=== PATIENT | female | born 1935 | race Native Hawaiian/Other Pacific Islander ===

== ENCOUNTER → 2016-11-01 | Outpatient (CLI) | payer MEDICARE, OTHER ==
[~2016-11-01] MED LIST: BACT800T5 PO; DICL50TA3 PO; MEDR4PAK3 PO; METO100T9 PO; ULTR50TA PO
[2016-11-01 09:28] LABS: AUTOMATED NEUTROPHIL # 4.4 TH/MM3 (1.8-7.7); BASOPHIL # 0.1 TH/MM3 (0-0.2); BASOPHIL % 1.3 % (0.0-2.0); EOSINOPHIL # 0.5 TH/MM3 (0-0.4); EOSINOPHIL % 6.9 % (0.0-4.0); HEMATOCRIT 35.4 % (35.0-46.0); HEMO FLAGS DIFF FINAL; LYMPH % 26.7 % (9.0-44.0); LYMPHOCYTE # 2.1 TH/MM3 (1.0-4.8); MEAN CELL VOLUME 85.7 FL (80.0-100.0); MEAN CORPUSCULAR HEMOGLOBIN 28.6 PG (27.0-34.0); MEAN CORPUSCULAR HGB CONC 33.4 % (32.0-36.0); NEUT % 57.1 % (16.0-70.0); PLATELET COUNT 339 TH/MM3 (150-450); RED BLOOD COUNT 4.14 MIL/MM3 (4.00-5.30); RED CELL DISTRIBUTION WIDTH 13.8 % (11.6-17.2); WHITE BLOOD COUNT 7.7 TH/MM3 (4.0-11.0)
[2016-11-01 09:35] LABS: ALKALINE PHOSPHATASE 70 U/L (45-117); ALT (GPT) 24 U/L (10-53); ANION GAP 9 MEQ/L (5-15); AST (GOT) 24 U/L (15-37); BICARBONATE 25.1 MEQ/L (21.0-32.0); BLOOD UREA NITROGEN 30 MG/DL (7-18); CHLORIDE 105 MEQ/L (98-107); GLOMERULAR FILTRATION RATE 57 ML/MIN (>89); GLUCOSE,FASTING 89 MG/DL (74-99); LDL CHOLESTEROL 136 MG/DL (0-99); POTASSIUM 4.5 MEQ/L (3.5-5.1); SODIUM (NA) 139 MEQ/L (136-145); TOTAL BILIRUBIN ADULT 0.3 MG/DL (0.2-1.0)
== END ==
LOC: PLAB 07:24
PROVIDERS: ATTEND Internal Medicine
DX: I10 Essential (primary) hypertension (principal); M15.0 Primary generalized (osteo)arthritis
CPT/HCPCS: 36415; 80053; 80061; 85025

== ENCOUNTER → 2016-12-13 | Outpatient (CLI) | payer MEDICARE, OTHER ==
[2016-12-13 10:16] LABS: BICARBONATE 28.4 MEQ/L (21.0-32.0); POTASSIUM 4.4 MEQ/L (3.5-5.1)
== END ==
LOC: PLAB 07:02
PROVIDERS: ATTEND Internal Medicine
DX: N17.8 Other acute kidney failure (principal)
CPT/HCPCS: 36415; 80048

== ENCOUNTER → 2017-03-29 | Outpatient (CLI) | payer MEDICARE, OTHER ==
[2017-03-29 09:06] LABS: AUTOMATED NEUTROPHIL # 3.9 TH/MM3 (1.8-7.7); BASOPHIL # 0.1 TH/MM3 (0-0.2); BASOPHIL % 1.3 % (0.0-2.0); EOSINOPHIL # 0.3 TH/MM3 (0-0.4); EOSINOPHIL % 4.6 % (0.0-4.0); HEMATOCRIT 33.3 % (35.0-46.0); HEMO FLAGS DIFF FINAL; LYMPH % 28.1 % (9.0-44.0); LYMPHOCYTE # 1.9 TH/MM3 (1.0-4.8); MEAN CELL VOLUME 84.1 FL (80.0-100.0); MEAN CORPUSCULAR HEMOGLOBIN 28.1 PG (27.0-34.0); MEAN CORPUSCULAR HGB CONC 33.4 % (32.0-36.0); MONO % 7.9 % (0.0-8.0); NEUT % 58.1 % (16.0-70.0); PLATELET COUNT 357 TH/MM3 (150-450); RED BLOOD COUNT 3.96 MIL/MM3 (4.00-5.30); WHITE BLOOD COUNT 6.8 TH/MM3 (4.0-11.0)
[2017-03-29 09:36] LABS: ANION GAP 5 MEQ/L (5-15); AST (GOT) 23 U/L (15-37); BICARBONATE 26.1 MEQ/L (21.0-32.0); BLOOD UREA NITROGEN 31 MG/DL (7-18); CHLORIDE 106 MEQ/L (98-107); GLOMERULAR FILTRATION RATE 65 ML/MIN (>89); GLUCOSE,FASTING 92 MG/DL (74-99); POTASSIUM 4.7 MEQ/L (3.5-5.1); SODIUM (NA) 137 MEQ/L (136-145)
[2017-03-29 09:47] LABS: ALKALINE PHOSPHATASE 74 U/L (45-117); ALT (GPT) 21 U/L (10-53); LDL CHOLESTEROL 127 MG/DL (0-99); TOTAL BILIRUBIN ADULT 0.2 MG/DL (0.2-1.0)
== END ==
LOC: PLAB 07:07
PROVIDERS: ATTEND Internal Medicine
DX: I10 Essential (primary) hypertension (principal); R53.83 Other fatigue
CPT/HCPCS: 36415; 80053; 80061; 84443; 85025

== ENCOUNTER → 2017-04-14 | Outpatient (CLI) | payer MEDICARE, OTHER ==
[2017-04-14 08:44] LABS: POTASSIUM 5.7 MEQ/L (3.5-5.1)
[2017-04-14 08:46] LABS: BICARBONATE 28.4 MEQ/L (21.0-32.0)
== END ==
LOC: PLAB 07:22
PROVIDERS: ATTEND Internal Medicine
DX: N17.9 Acute kidney failure, unspecified (principal)
CPT/HCPCS: 36415; 80048

== ENCOUNTER → 2017-09-04 | Outpatient (CLI) | payer MEDICARE, OTHER ==
[2017-09-04 09:56] LABS: AUTOMATED NEUTROPHIL # 3.8 TH/MM3 (1.8-7.7); BASOPHIL # 0.1 TH/MM3 (0-0.2); BASOPHIL % 1.3 % (0.0-2.0); EOSINOPHIL # 0.3 TH/MM3 (0-0.4); EOSINOPHIL % 5.2 % (0.0-4.0); HEMATOCRIT 33.3 % (35.0-46.0); HEMOGLOBIN 11.2 GM/DL (11.6-15.3); LYMPH % 26.6 % (9.0-44.0); LYMPHOCYTE # 1.7 TH/MM3 (1.0-4.8); MEAN CELL VOLUME 84.4 FL (80.0-100.0); MEAN CORPUSCULAR HEMOGLOBIN 28.4 PG (27.0-34.0); MEAN CORPUSCULAR HGB CONC 33.6 % (32.0-36.0); MEAN PLATELET VOLUME 7.6 FL (7.0-11.0); MONO % 8.3 % (0.0-8.0); MONOCYTE # 0.5 TH/MM3 (0-0.9); NEUT % 58.6 % (16.0-70.0); PLATELET COUNT 394 TH/MM3 (150-450); RED BLOOD COUNT 3.94 MIL/MM3 (4.00-5.30); RED CELL DISTRIBUTION WIDTH 14.1 % (11.6-17.2); WHITE BLOOD COUNT 6.5 TH/MM3 (4.0-11.0)
[2017-09-04 10:16] LABS: ALBUMIN 3.5 GM/DL (3.4-5.0); AST (GOT) 20 U/L (15-37); BICARBONATE 27.9 MEQ/L (21.0-32.0); BLOOD UREA NITROGEN 26 MG/DL (7-18); CALCIUM 9.3 MG/DL (8.5-10.1); CHLORIDE 102 MEQ/L (98-107); CHOLESTEROL 204 MG/DL (120-200); CREATININE 0.91 MG/DL (0.50-1.00); GLOMERULAR FILTRATION RATE 60 ML/MIN (>89); GLUCOSE,FASTING 93 MG/DL (74-99); SODIUM (NA) 137 MEQ/L (136-145); TRIGLYCERIDES 135 MG/DL (42-150)
[2017-09-04 10:42] LABS: % SATURATION IRON PROFILE 11.5 % (20-50); ALKALINE PHOSPHATASE 73 U/L (45-117); ALT (GPT) 23 U/L (10-53); CHOLESTEROL/ HDL RATIO 3.86 RATIO; FERRITIN 30 NG/ML (8-252); HDL CHOLESTEROL 52.8 MG/DL (40.0-60.0); IRON (FE) 50 MCG/DL (50-170); LDL CHOLESTEROL 124 MG/DL (0-99); TOTAL BILIRUBIN ADULT 0.2 MG/DL (0.2-1.0); TOTAL IRON BINDING CAPACITY 434 MCG/DL (250-450); TOTAL PROTEIN 7.7 GM/DL (6.4-8.2)
[2017-09-04 10:52] LABS: FOLATE GREATER THAN 20.0 NG/ML (3.1-17.5)
== END ==
LOC: PLAB 07:24
PROVIDERS: ATTEND Internal Medicine
DX: D64.9 Anemia, unspecified (principal); I10 Essential (primary) hypertension
CPT/HCPCS: 36415; 80053; 80061; 82607; 82728; 82746; 83540; 83550; 85025

== ENCOUNTER 2017-11-27 04:37 | Observation (INO) | payer MEDICARE, OTHER ==
[2017-11-27] VITALS (8 sets, daily range): BP systolic 138–201; BP diastolic 82–99; PULSE 70–101; RESP 16–20; TEMP 96.2–97.6; O2SAT 95–100
[~2017-11-27] VITALS: Ht 147.3 cm; Wt 48.0 kg
--- NOTE | 2017-11-27 05:12 | PD ---
HPI Chief Complaint: GI Complaint Time Seen by Provider: 05:05 Travel History International Travel<30 days: No Contact w/Intl Traveler<30days: No Traveled to known affect area: No History of Present Illness HPI 82-year-old female presents to the emergency department by private transportation the care of family for evaluation of vomiting 2 this morning. Patient was awakened from sleep at 2:30 AM with episode of vomiting stomach contents and then again at 4 AM with episode of vomiting stomach contents. No bilious emesis no hematemesis no coffee-ground emesis. On Monday patient had episodes of diarrhea without melena hematochezia. Patient had no fever chills. Patient has had generalized weakness after episodes of vomiting. No chest pain no shortness of breath no referred neck jaw back shoulder arm flank pain or epigastric pain. Patient has history of hypertension but denies other chronic medical conditions. Patient has had previous knee surgery but no other surgeries. Patient had no dysuria frequency urgency flank pain or hematuria. Patient's had no confusion headache visual disturbance speech disturbance or focal upper or lower extremity numbness tingling or weakness or unilateral numbness tingling or weakness. Patient has remained appropriate except for generalized weakness. Again patient had no fever chills. No recent respiratory illness. Patient has consumed the same foods as her family members who present with her. Denies dietary indiscretion well water ingestion or foreign travel. Patient had no change in her medications which include metoprolol for blood pressure management and as needed tramadol for chronic knee pain. Patient also notes generalized abdominal pain primarily left lower quadrant. No known history of inflammatory bowel disease, colitis or diverticulitis. No prior abdominal surgeries. Discomfort is mild at this time [facility] Past Medical History Narrative Medical Low-dose aspirin daily hypertension chronic knee pain bilateral knee surgery eye surgery; no tobacco use alcohol use substance use; nursing notes reviewed Hx Anticoagulant Therapy: Yes Arthritis: Yes Blood Disorders: No Heart Rhythm Problems: No Cancer: No Cardiovascular Problems: No High Cholesterol: No Chemotherapy: No Chest Pain: No Congestive Heart Failure: No Cerebrovascular Accident: No Diabetes: No Endocrine: No Glaucoma: Yes (LT EYE) Genitourinary: No Headaches: Yes Hepatitis: No Hiatal Hernia: No Hypertension: Yes Immune Disorder: No Medical other: Yes (ARTHRITIS) Musculoskeletal: Yes Neurologic: Yes Psychiatric: No Respiratory: No Immunizations Current: No Myocardial Infarction: No Radiation Therapy: No Seizures: No Thyroid Disease: No Menopausal: Yes Past Surgical History Abdominal Surgery: No AICD: No Cardiac Surgery: No Ear Surgery: No Endocrine Surgery: No Eye Surgery: Yes (EYE SURGERY FOR GLAUCOMA) Genitourinary Surgery: No Gynecologic Surgery: No Joint Replacement: Yes (BILAT KNEE 05,06) Oral Surgery: No Pacemaker: No Thoracic Surgery: No Other Surgery: Yes Social History Alcohol Use: No Tobacco Use: No Substance Use: No Allergies-Medications (Allergen,Severity, Reaction): Coded Allergies: sulfamethoxazole (Unverified Allergy, Intermediate, 04/04/17) trimethoprim (Unverified Allergy, Intermediate, 04/04/17) Reported Meds & Prescriptions Reported Meds & Active Scripts Active Review of Systems Except as stated in HPI: all other systems reviewed are Neg General / Constitutional: No: Fever, Chills Eyes: No: Visual changes HENT: No: Headaches, Lightheadedness Cardiovascular: No: Chest Pain or Discomfort Respiratory: No: Shortness of Breath Gastrointestinal: Positive: Nausea, Vomiting, Diarrhea, Abdominal Pain, No: Hematemesis, Hematochezia Genitourinary: No: Dysuria, Flank Pain Musculoskeletal: No: Myalgias, Arthralgias Skin: No Rash Neurologic: Positive: Weakness, No: Dizziness, Syncope, Focal Abnormalities, Coordination Problem, Change in Mentation, Slurred Speech Psychiatric: Positive: Anxiety Hematologic/Lymphatic: No: Lymph Node Enlargement Physical Exam Narrative GENERAL: Pleasant elderly female in no acute distress no respiratory distress with family at bedside; patient speaks Darius and family is available to translate, stratus is not available SKIN: Warm and dry. HEAD: Normocephalic. EYES: No scleral icterus. No injection or drainage. NECK: Supple, trachea midline. No JVD or lymphadenopathy. CARDIOVASCULAR: Regular rate and rhythm without murmurs, gallops, or rubs. Pulses are 2+ and equal bilaterally radial and dorsalis pedis pulses RESPIRATORY: Breath sounds equal bilaterally. No accessory muscle use. GASTROINTESTINAL: Abdomen soft, non-tender except for mild tenderness to left lower quadrant without guarding or rebound, nondistended. No palpable pulsatile mass. MUSCULOSKELETAL: No cyanosis, or edema. BACK: Nontender without obvious deformity. No CVA tenderness. Data Data Last Documented VS Vital Signs Date Time Temp Pulse Resp B/P (MAP) Pulse Ox O2 Delivery O2 Flow Rate FiO2 11/27/17 07:01 18 11/27/17 06:24 85 138/82 (100) 100 Room Air 11/27/17 04:44 97.6 Orders Orders Complete Blood Count With Diff (11/27/17 05:05) Comprehensive Metabolic Panel (11/27/17 05:05) Urinalysis - C+S If Indicated (11/27/17 05:05) Lipase (11/27/17 05:05) Iv Access Insert/Monitor (11/27/17 05:05) Ecg Monitoring (11/27/17 05:05) Oximetry (11/27/17 05:05) Sodium Chloride 0.9% Flush (Ns Flush) (11/27/17 05:15) Chest, Single Ap (11/27/17 05:05) Electrocardiogram (11/27/17 ) Magnesium (Mg) (11/27/17 05:05) Troponin I (11/27/17 05:05) Ckmb (Isoenzyme) Profile (11/27/17 05:05) Ct Abd/Pel W/O Iv Contrast (11/27/17 ) Sodium Chlorid 0.9% 500 Ml Inj (Ns 500 M (11/27/17 07:00) Labs Laboratory Tests Test 11/27/17 05:30 White Blood Count 13.1 TH/MM3 Red Blood Count 4.28 MIL/MM3 Hemoglobin 11.6 GM/DL Hematocrit 35.5 % Mean Corpuscular Volume 82.9 FL Mean Corpuscular Hemoglobin 27.0 PG Mean Corpuscular Hemoglobin Concent 32.6 % Red Cell Distribution Width 14.1 % Platelet Count 488 TH/MM3 Mean Platelet Volume 7.7 FL Neutrophils (%) (Auto) 89.6 % Lymphocytes (%) (Auto) 6.3 % Monocytes (%) (Auto) 1.9 % Eosinophils (%) (Auto) 0.6 % Basophils (%) (Auto) 1.6 % Neutrophils # (Auto) 11.8 TH/MM3 Lymphocytes # (Auto) 0.8 TH/MM3 Monocytes # (Auto) 0.2 TH/MM3 Eosinophils # (Auto) 0.1 TH/MM3 Basophils # (Auto) 0.2 TH/MM3 CBC Comment AUTO DIFF Differential Comment AUTO DIFF CONFIRMED Urine Collection Type CLEAN CATCH Urine Color YELLOW Urine Turbidity CLEAR Urine pH 6.0 Urine Specific [place] 1.025 Urine Protein 30 mg/dL Urine Glucose (UA) NEG mg/dL Urine Ketones TRACE mg/dL Urine Occult Blood NEG Urine Nitrite NEG Urine Bilirubin NEG Urine Urobilinogen 0.2 MG/DL Urine Leukocyte Esterase NEG Urine WBC 3-5 /hpf Urine Squamous Epithelial Cells 0-5 /hpf Urine Mucus MOD /lpf Microscopic Urinalysis Comment CULT NOT INDICATED Blood Urea Nitrogen 28 MG/DL Creatinine 0.96 MG/DL Random Glucose 130 MG/DL Total Protein 7.6 GM/DL Albumin 3.0 GM/DL Calcium Level 8.8 MG/DL Magnesium Level 2.2 MG/DL Alkaline Phosphatase 76 U/L Aspartate Amino Transf (AST/SGOT) 29 U/L Alanine Aminotransferase (ALT/SGPT) 20 U/L Total Bilirubin 0.3 MG/DL Sodium Level 137 MEQ/L Potassium Level 4.6 MEQ/L Chloride Level 103 MEQ/L Carbon Dioxide Level 26.1 MEQ/L Anion Gap 8 MEQ/L Estimat Glomerular Filtration Rate 56 ML/MIN Total Creatine Kinase 93 U/L Troponin I LESS THAN 0.02 NG/ML Lipase 315 U/L [facility] Medical Decision Making Medical Screen Exam Complete: Yes Emergency Medical Condition: Yes Medical Record Reviewed: Yes Interpretation(s) UA: wnl Troponin I: Less than 0.02; CK: 93, not elevated Lipase 350, not elevated Last Impressions Chest X-Ray 11/27/17 0505 Signed Impressions: Service Date/Time: Monday, November 27, 2017 05:11 - CONCLUSION: Left apical density, unchanged from previous study. No infiltrate. Darren Castro MD CBC & BMP Diagram 11/27/17 05:30 Total Protein 7.6, Albumin 3.0 L, Calcium Level 8.8, Magnesium Level 2.2, Alkaline Phosphatase 76, Aspartate Amino Transf (AST/SGOT) 29, Alanine Aminotransferase (ALT/SGPT) 20, Total Bilirubin 0.3 Vital Signs Date Time Temp Pulse Resp B/P (MAP) Pulse Ox O2 Delivery O2 Flow Rate FiO2 11/27/17 06:24 85 16 138/82 (100) 100 Room Air 11/27/17 05:41 97 Room Air 11/27/17 04:44 97.6 101 16 201/95 (130) 99 Differential Diagnosis Foodborne illness, gastroenteritis, viral syndrome, electrolyte disturbance, diverticulitis, colitis, bowel obstruction, pancreatitis, biliary colic, ACS, atypical chest pain Narrative Course Patient no acute distress IV access obtained specimens collected and sent for resulting patient at this time denies any nausea therefore will defer administration of any antiemetic Lab values found to be grossly within normal limits specifically white count however is elevated at 13,000 with left shift; chemistries remarkable for mild renal insufficiency; urinalysis is normal; troponin I is less than 0.02, not elevated and CK total is 93 not elevated; EKG is sinus tachycardia with no acute ST elevation or injury pattern. Patient remains mildly tachycardic denies any further nausea and has had no vomiting while here in the emergency department continues to deny any fever chills chest pain shortness of breath diaphoresis and presently abdomen is soft nontender without guarding or rebound no joint pain or swelling or skin rash. However in view of patient's ongoing tachycardia and white cell count elevation with only 2 episodes of vomiting proceed with CT kidney stone protocol to evaluate for possible intra-abdominal/intrapelvic etiology for vomiting. Patient also received 500 cc bolus of normal saline at 250 cc aliquots. Care signed over to Dr. Arce Diagnosis Primary Impression: Vomiting Qualified Codes: R11.2 - Nausea with vomiting, unspecified Karin Flores MD Nov 27, 2017 05:12
[2017-11-27] MEDS ORDERED: SODIUM CHLORIDE 0.9% FLUSH 10 ML FLUSH IVF PRN (05:15)
--- NOTE | 2017-11-27 05:33 | RADRPT ---
EXAM DATE/TIME: 11/27/2017 05:11 [facility] COMPARISON: CHEST PA & LAT, October 28, 2015, 12:11. INDICATIONS : Shortness of breath. MEDICAL HISTORY : None. SURGICAL HISTORY : None. ENCOUNTER: Initial ACUITY: 1 day PAIN SCORE: 0/10 LOCATION: Bilateral chest FINDINGS: A single view of the chest demonstrates a left apical density. Right lung clear. Heart normal in siz e. Osseous structures are intact. CONCLUSION: Left apical density, unchanged from previous study. No infiltrate. Darren Castro MD on November 27, 2017 at 5:30 Board Certified Radiologist. This report was verified electronically.
[2017-11-27 05:49] LABS: AUTOMATED NEUTROPHIL # 11.8 TH/MM3 (1.8-7.7); BASOPHIL # 0.2 TH/MM3 (0-0.2); BASOPHIL % 1.6 % (0.0-2.0); EOSINOPHIL # 0.1 TH/MM3 (0-0.4); EOSINOPHIL % 0.6 % (0.0-4.0); HEMATOCRIT 35.5 % (35.0-46.0); HEMOGLOBIN 11.6 GM/DL (11.6-15.3); LYMPH % 6.3 % (9.0-44.0); LYMPHOCYTE # 0.8 TH/MM3 (1.0-4.8); MEAN CELL VOLUME 82.9 FL (80.0-100.0); MEAN CORPUSCULAR HGB CONC 32.6 % (32.0-36.0); MEAN PLATELET VOLUME 7.7 FL (7.0-11.0); MONO % 1.9 % (0.0-8.0); MONOCYTE # 0.2 TH/MM3 (0-0.9); NEUT % 89.6 % (16.0-70.0); PLATELET COUNT 488 TH/MM3 (150-450); RED BLOOD COUNT 4.28 MIL/MM3 (4.00-5.30); RED CELL DISTRIBUTION WIDTH 14.1 % (11.6-17.2); WHITE BLOOD COUNT 13.1 TH/MM3 (4.0-11.0)
[2017-11-27 05:52] LABS: CHLORIDE 103 MEQ/L (98-107); SODIUM (NA) 137 MEQ/L (136-145)
[2017-11-27 05:53] LABS: BILIRUBIN, URINE NEG (NEG); BLOOD, URINE NEG (NEG); GLUCOSE,URINE NEG (NEG); KETONE, URINE TRACE mg/dL (NEG); NITRITE,URINE NEG (NEG); URINE COLOR YELLOW (YELLW/STRAW); URINE LEUKOCYTE ESTERASE NEG (NEG)
[2017-11-27 05:56] LABS: BICARBONATE 26.1 MEQ/L (21.0-32.0); CALCIUM 8.8 MG/DL (8.5-10.1); GLUCOSE,RANDOM 130 MG/DL (74-106); MAGNESIUM 2.2 MG/DL (1.5-2.5)
[2017-11-27 05:57] LABS: BLOOD UREA NITROGEN 28 MG/DL (7-18)
[2017-11-27 05:59] LABS: ALT (GPT) 20 U/L (10-53); AST (GOT) 29 U/L (15-37); CREATININE 0.96 MG/DL (0.50-1.00); GLOMERULAR FILTRATION RATE 56 ML/MIN (>89)
[2017-11-27 06:01] LABS: TOTAL BILIRUBIN ADULT 0.3 MG/DL (0.2-1.0); TOTAL PROTEIN 7.6 GM/DL (6.4-8.2)
[2017-11-27 06:02] LABS: ALKALINE PHOSPHATASE 76 U/L (45-117)
[2017-11-27 06:03] LABS: MUCUS URINE MOD /lpf (OCC)
[2017-11-27 06:05] LABS: SQUAMOUS EPITHELIAL CELL URINE 0-5 /hpf (0-5)
[2017-11-27 06:06] LABS: TROPONIN I LESS THAN 0.02 NG/ML (0.02-0.05)
[2017-11-27] MEDS ORDERED: SODIUM CHLORID 0.9% 500 ML INJ 500 ML IV ONE (07:00)
--- NOTE | 2017-11-27 07:52 | RADRPT ---
EXAM DATE/TIME: 11/27/2017 07:15 [facility] COMPARISON: No previous studies available for comparison. INDICATIONS : Vomiting. ORAL CONTRAST: No oral contrast ingested. RADIATION DOSE: 7.50 CTDIvol (mGy) MEDICAL HISTORY : Hypertension. SURGICAL HISTORY : None. ENCOUNTER: Initial ACUITY: 1 day PAIN SCALE: 0/10 LOCATION: pelvis abdomen TECHNIQUE: Volumetric scanning of the abdomen and pelvis was performed. Using automated exposure control and ad justment of the mA and/or kV according to patient size, radiation dose was kept as low as reasonably achievable to obtain optimal diagnostic quality images. DICOM format image data is available electro nically for review and comparison. FINDINGS: Spleen, pancreas, adrenals, kidneys, liver, gallbladder, stomach, urinary bladder, uterus and adnexa are unremarkable. No evidence of bowel extraction. Atherosclerotic calcifications of the aorta and il iac vessels are noted. Trace free fluid in the office. There are scattered colonic diverticuli. In th e left lower quadrant on axial image 46 there is a focal eccentric bowel wall thickening involving th e descending colon with adjacent stranding of the pericolonic fat identified. A colonic mass given th e eccentric bowel wall thickening is difficult to exclude. Focal diverticulitis may also have this ap pearance. There is a small amount of free fluid at the inferior tip of the right hepatic lobe with st randing of the fat in the right lower quadrant. There is abnormal dilatation of small bowel loops in the midabdomen particularly in the right mid abdomen just inferior to the level of the right kidney. Ileus versus developing obstruction cannot this appearance. The appendix is not visualized. Lung base s are clear. Osseous structures are intact. CONCLUSION: There are inflammatory changes and fluid in the right midabdomen as well as a small amount of free fl uid in the mesentery and pelvis with mildly dilated loops of small bowel seen greatest in the right m id abdomen. A developing obstruction may have this appearance versus an ileus pattern. There is also abnormal all wall thickening and adjacent stranding of the pericolonic fat of the desce nding colon focally which may reflect colonic neoplasm versus mild diverticulitis, favor the former. Direct visualization with colonoscopy should be considered if one has not recently been performed. Junior Cullen MD on November 27, 2017 at 7:47 Board Certified Radiologist. This report was verified electronically.
--- NOTE | 2017-11-27 09:23 | PD ---
HPI Chief Complaint: GI Complaint Time Seen by Provider: 09:15 Travel History International Travel<30 days: No Contact w/Intl Traveler<30days: No Traveled to known affect area: No History of Present Illness HPI 82-year-old female presented with abdominal pain and vomiting. The vomiting occurred around 430 this morning. She has been seen by Dr. Flores initially. A CT scan was ordered. The CT scan has been read. There are inflammatory changes and fluid in the right midabdomen as well as small amount of free fluid in the mesentery and pelvis with mildly dilated loops of small bowel seen greatest in the right midabdomen developing obstruction versus ileus could have this pattern. There is also abnormal wall thickening and stranding of the pericolonic fat of the descending colon which may reflect colonic neoplasm versus mild diverticulitis, favor the former. Direct visualization with colonoscopy should be considered if one has not recently been performed. On speaking with the patient she has had a colonoscopy within the past 5 years she thinks which was done routinely. Patient is 82 years old with ileus versus early obstruction. I will contact medical service for admission. I have spoken with Dr. Andrews who iswilling to consult and does recommend that we give Flagyl PFS Past Medical History Hx Anticoagulant Therapy: Yes Arthritis: Yes Blood Disorders: No Heart Rhythm Problems: No Cancer: No Cardiovascular Problems: No High Cholesterol: No Chemotherapy: No Chest Pain: No Congestive Heart Failure: No Cerebrovascular Accident: No Diabetes: No Endocrine: No Glaucoma: Yes (LT EYE) Genitourinary: No Headaches: Yes Hepatitis: No Hiatal Hernia: No Hypertension: Yes Immune Disorder: No Medical other: Yes (ARTHRITIS) Musculoskeletal: Yes Neurologic: Yes Psychiatric: No Respiratory: No Immunizations Current: No Myocardial Infarction: No Radiation Therapy: No Seizures: No Thyroid Disease: No Menopausal: Yes Past Surgical History Abdominal Surgery: No AICD: No Cardiac Surgery: No Ear Surgery: No Endocrine Surgery: No Eye Surgery: Yes (EYE SURGERY FOR GLAUCOMA) Genitourinary Surgery: No Gynecologic Surgery: No Joint Replacement: Yes (BILAT KNEE 05,06) Oral Surgery: No Pacemaker: No Thoracic Surgery: No Other Surgery: Yes Social History Alcohol Use: No Tobacco Use: No Substance Use: No Allergies-Medications (Allergen,Severity, Reaction): Coded Allergies: sulfamethoxazole (Unverified Allergy, Intermediate, 04/04/17) trimethoprim (Unverified Allergy, Intermediate, 04/04/17) Reported Meds & Prescriptions Reported Meds & Active Scripts Active Reported Metoprolol Succinate ER 24 HR (Metoprolol Succinate) 100 Mg Tab 100 Mg PO DAILY Physical Exam Narrative per Dr Flores's dictation Data Data Last Documented VS Vital Signs Date Time Temp Pulse Resp B/P (MAP) Pulse Ox O2 Delivery O2 Flow Rate FiO2 11/27/17 07:01 18 11/27/17 06:24 85 138/82 (100) 100 Room Air 11/27/17 04:44 97.6 Orders Orders Complete Blood Count With Diff (11/27/17 05:05) Comprehensive Metabolic Panel (11/27/17 05:05) Urinalysis - C+S If Indicated (11/27/17 05:05) Lipase (11/27/17 05:05) Iv Access Insert/Monitor (11/27/17 05:05) Ecg Monitoring (11/27/17 05:05) Oximetry (11/27/17 05:05) Sodium Chloride 0.9% Flush (Ns Flush) (11/27/17 05:15) Chest, Single Ap (11/27/17 05:05) Electrocardiogram (11/27/17 ) Magnesium (Mg) (11/27/17 05:05) Troponin I (11/27/17 05:05) Ckmb (Isoenzyme) Profile (11/27/17 05:05) Ct Abd/Pel W/O Iv Contrast (11/27/17 ) Sodium Chlorid 0.9% 500 Ml Inj (Ns 500 M (11/27/17 07:00) Sodium Chlor 0.9% 1000 Ml Inj (Ns 1000 M (11/27/17 09:45) Metronidazole 500 Mg Inj (Flagyl 500 Mg (11/27/17 09:45) Admit Order (Ed Use Only) (11/27/17 10:04) Place In Observation (11/27/17 ) Vital Signs (Adult) Q4H (11/27/17 10:02) Activity Oob Ad Sobeida (11/27/17 10:02) Intake + Output GENARO.QSHIFT (11/27/17 10:02) Sodium Chlor 0.9% 1000 Ml Inj (Ns 1000 M (11/27/17 10:02) Sodium Chloride 0.9% Flush (Ns Flush) (11/27/17 10:15) Sodium Chloride 0.9% Flush (Ns Flush) (11/27/17 21:00) Ondansetron Inj (Zofran Inj) (11/27/17 12:00) Scd Bilateral/Knee High GENARO.BID (11/27/17 10:02) Naloxone Inj (Narcan Inj) (11/27/17 10:15) Docusate Sodium-Senna (Sola-Colace) (11/27/17 21:00) Magnesium Hydroxide Liq (Milk Of Magnesi (11/27/17 10:15) Sennosides (Senokot) (11/27/17 10:15) Bisacodyl Supp (Dulcolax Supp) (11/27/17 10:15) Lactulose Liq (Lactulose Liq) (11/27/17 10:15) Acetamin-Hydrocod 325-5 Mg (Allred 5-325 (11/27/17 10:15) Acetamin-Hydrocod 325-10 Mg (Allred 10-32 (11/27/17 10:15) Morphine Inj (Morphine Inj) (11/27/17 10:15) Labs Laboratory Tests Test 11/27/17 05:30 White Blood Count 13.1 TH/MM3 Red Blood Count 4.28 MIL/MM3 Hemoglobin 11.6 GM/DL Hematocrit 35.5 % Mean Corpuscular Volume 82.9 FL Mean Corpuscular Hemoglobin 27.0 PG Mean Corpuscular Hemoglobin Concent 32.6 % Red Cell Distribution Width 14.1 % Platelet Count 488 TH/MM3 Mean Platelet Volume 7.7 FL Neutrophils (%) (Auto) 89.6 % Lymphocytes (%) (Auto) 6.3 % Monocytes (%) (Auto) 1.9 % Eosinophils (%) (Auto) 0.6 % Basophils (%) (Auto) 1.6 % Neutrophils # (Auto) 11.8 TH/MM3 Lymphocytes # (Auto) 0.8 TH/MM3 Monocytes # (Auto) 0.2 TH/MM3 Eosinophils # (Auto) 0.1 TH/MM3 Basophils # (Auto) 0.2 TH/MM3 CBC Comment AUTO DIFF Differential Comment AUTO DIFF CONFIRMED Urine Collection Type CLEAN CATCH Urine Color YELLOW Urine Turbidity CLEAR Urine pH 6.0 Urine Specific [place] 1.025 Urine Protein 30 mg/dL Urine Glucose (UA) NEG mg/dL Urine Ketones TRACE mg/dL Urine Occult Blood NEG Urine Nitrite NEG Urine Bilirubin NEG Urine Urobilinogen 0.2 MG/DL Urine Leukocyte Esterase NEG Urine WBC 3-5 /hpf Urine Squamous Epithelial Cells 0-5 /hpf Urine Mucus MOD /lpf Microscopic Urinalysis Comment CULT NOT INDICATED Blood Urea Nitrogen 28 MG/DL Creatinine 0.96 MG/DL Random Glucose 130 MG/DL Total Protein 7.6 GM/DL Albumin 3.0 GM/DL Calcium Level 8.8 MG/DL Magnesium Level 2.2 MG/DL Alkaline Phosphatase 76 U/L Aspartate Amino Transf (AST/SGOT) 29 U/L Alanine Aminotransferase (ALT/SGPT) 20 U/L Total Bilirubin 0.3 MG/DL Sodium Level 137 MEQ/L Potassium Level 4.6 MEQ/L Chloride Level 103 MEQ/L Carbon Dioxide Level 26.1 MEQ/L Anion Gap 8 MEQ/L Estimat Glomerular Filtration Rate 56 ML/MIN Total Creatine Kinase 93 U/L Troponin I LESS THAN 0.02 NG/ML Lipase 315 U/L [facility] Medical Decision Making Medical Screen Exam Complete: Yes Emergency Medical Condition: Yes Medical Record Reviewed: Yes Differential Diagnosis Differential includes ileus versus early small bowel obstruction. Possible space-occupying lesion in the colon Narrative Course Patient will be admitted to the hospital for further evaluation of Her abnormal CT scan Diagnosis Primary Impression: Vomiting Qualified Codes: R11.2 - Nausea with vomiting, unspecified Additional Impression: Abdominal pain Admitting Information Admitting Physician Requests: Observation [place] MD Nov 27, 2017 09:23
[2017-11-27] MEDS ORDERED: SODIUM CHLOR 0.9% 1000 ML INJ 1,000 ML IV ONE (09:45)
[2017-11-27] MEDS ORDERED: metroNIDAZOLE 500 MG INJ 100 ML IV ONE (09:45)
[2017-11-27] MEDS: SODIUM CHLOR 0.9% 1000 ML INJ 1,000 ML IV SCH ×2 (10:02→23:19)
[2017-11-27] MEDS ORDERED: MORPHINE SULFATE 2 MG/ML SYRINGE IV PUSH PRN (10:15)
[2017-11-27] MEDS ORDERED: BISACODYL 10 MG SUPP RECTAL PRN (10:15)
[2017-11-27] MEDS ORDERED: SENNOSIDES 8.6 MG TAB PO PRN (10:15)
[2017-11-27] MEDS ORDERED: ACETAMINOPHEN/HYDROcodone 325 MG/5 MG TAB PO PRN (10:15)
[2017-11-27] MEDS ORDERED: SODIUM CHLORIDE 0.9% FLUSH 10 ML FLUSH IV FLUSH PRN (10:15)
[2017-11-27] MEDS ORDERED: LACTULOSE SYRUP 20 GM/30 ML CUP PO PRN (10:15)
[2017-11-27] MEDS ORDERED: NALOXONE HCL 0.4 MG/ML AMP IV PUSH PRN (10:15)
[2017-11-27] MEDS ORDERED: MAGNESIUM HYDROXIDE SUSP 30 ML CUP PO PRN (10:15)
[2017-11-27] MEDS ORDERED: ACETAMINOPHEN/HYDROcodone 325 MG/10 MG TAB PO PRN (10:15)
[2017-11-27] MEDS ORDERED: ONDANSETRON HCL 4 MG/2 ML VIAL IVP PRN (12:00)
[2017-11-27] MEDS ORDERED: METO1TAB43 PO (12:46)
[2017-11-27] MEDS ORDERED: ENALAPRILAT 1.25 MG/ML VIAL IV PUSH PRN (13:00)
[2017-11-27] MEDS: METOPROLOL SUCCINATE 50 MG EXTENDED RELEASE TAB PO SCH (13:13)
--- NOTE | 2017-11-27 13:55 | PD.CONS ---
HPI History of Present Illness This is a 82 year old F who presented to the ER last night with complaints of abdominal pain, nausea, and vomiting. Pt states the abdominal pain began last night and has since resolved. Abdominal pain was generalized and constant. Also had two episodes of emesis early this morning, Denies hematemesis and coffee ground emesis. Pt returned from [facility] on November 09, although she denies prior abdominal pain, the daughter states she was recently seen by PCP for pain who prescribed her an antibiotic and antiemetic. Pt denies diarrhea, constipation, blood in stool, weight loss, acid reflux. Per pts daughter the patient has been having a poor appetite for the past week. She thinks her last colonoscopy was 4-5 years ago and believes it was a normal exam. Unsure who did the procedure or where it was done. Reviewed our office records and none found on pt. (Ruba Mena) PFSH Past Medical History HTN (Ruba Mena) Coded Allergies: sulfamethoxazole (Unverified Allergy, Intermediate, 04/04/17) trimethoprim (Unverified Allergy, Intermediate, 04/04/17) Review of Systems Gastrointestinal: COMPLAINS OF: Abdominal pain, Nausea, Vomiting, DENIES: Black stools, Bloody stools, Constipation, Diarrhea, Difficulty Swallowing, Odynophagia, Swelling of Abdomen, Heartburn, Hematemesis (Ruba Mena) GI Exam Vitals I&O Vital Signs Date Time Temp Pulse Resp B/P (MAP) Pulse Ox O2 Delivery O2 Flow Rate FiO2 11/27/17 12:00 96.2 99 16 196/92 (126) 95 11/27/17 11:39 199/95 (129) 11/27/17 07:01 18 11/27/17 06:24 85 16 138/82 (100) 100 Room Air 11/27/17 05:41 97 Room Air 11/27/17 04:44 97.6 101 16 201/95 (130) 99 I/O 11/26/17 11/26/17 11/26/17 11/27/17 11/27/17 11/27/17 07:00 15:00 23:00 07:00 15:00 23:00 Intake Total 350 ml Balance 350 ml Intake IV Total 350 ml Imaging Last Impressions Chest X-Ray 11/27/17 0509 Signed Impressions: Service Date/Time: Monday, November 27, 2017 05:11 - CONCLUSION: Left apical density, unchanged from previous study. No infiltrate. Darren Castro MD Abdomen/Pelvis CT 11/27/17 0000 Signed Impressions: Service Date/Time: Monday, November 27, 2017 07:15 - CONCLUSION: There are inflammatory changes and fluid in the right midabdomen as well as a small amount of free fluid in the mesentery and pelvis with mildly dilated loops of small bowel seen greatest in the right mid abdomen. A developing obstruction may have this appearance versus an ileus pattern. There is also abnormal all wall thickening and adjacent stranding of the pericolonic fat of the descending colon focally which may reflect colonic neoplasm versus mild diverticulitis, favor the former. Direct visualization with colonoscopy should be considered if one has not recently been performed. Junior Cullen MD Laboratory Test 11/27/17 05:30 White Blood Count 13.1 TH/MM3 Red Blood Count 4.28 MIL/MM3 Hemoglobin 11.6 GM/DL Hematocrit 35.5 % Mean Corpuscular Volume 82.9 FL Mean Corpuscular Hemoglobin 27.0 PG Mean Corpuscular Hemoglobin Concent 32.6 % Red Cell Distribution Width 14.1 % Platelet Count 488 TH/MM3 Mean Platelet Volume 7.7 FL Neutrophils (%) (Auto) 89.6 % Lymphocytes (%) (Auto) 6.3 % Monocytes (%) (Auto) 1.9 % Eosinophils (%) (Auto) 0.6 % Basophils (%) (Auto) 1.6 % Neutrophils # (Auto) 11.8 TH/MM3 Lymphocytes # (Auto) 0.8 TH/MM3 Monocytes # (Auto) 0.2 TH/MM3 Eosinophils # (Auto) 0.1 TH/MM3 Basophils # (Auto) 0.2 TH/MM3 CBC Comment AUTO DIFF Differential Comment AUTO DIFF CONFIRMED Urine Collection Type CLEAN CATCH Urine Color YELLOW Urine Turbidity CLEAR Urine pH 6.0 Urine Specific [place] 1.025 Urine Protein 30 mg/dL Urine Glucose (UA) NEG mg/dL Urine Ketones TRACE mg/dL Urine Occult Blood NEG Urine Nitrite NEG Urine Bilirubin NEG Urine Urobilinogen 0.2 MG/DL Urine Leukocyte Esterase NEG Urine WBC 3-5 /hpf Urine Squamous Epithelial Cells 0-5 /hpf Urine Mucus MOD /lpf Microscopic Urinalysis Comment CULT NOT INDICATED Blood Urea Nitrogen 28 MG/DL Creatinine 0.96 MG/DL Random Glucose 130 MG/DL Total Protein 7.6 GM/DL Albumin 3.0 GM/DL Calcium Level 8.8 MG/DL Magnesium Level 2.2 MG/DL Alkaline Phosphatase 76 U/L Aspartate Amino Transf (AST/SGOT) 29 U/L Alanine Aminotransferase (ALT/SGPT) 20 U/L Total Bilirubin 0.3 MG/DL Sodium Level 137 MEQ/L Potassium Level 4.6 MEQ/L Chloride Level 103 MEQ/L Carbon Dioxide Level 26.1 MEQ/L Anion Gap 8 MEQ/L Estimat Glomerular Filtration Rate 56 ML/MIN Total Creatine Kinase 93 U/L Troponin I LESS THAN 0.02 NG/ML Lipase 315 U/L Physical Examination HEENT: Normocephalic; atraumatic CHEST: Even/unlabored. CARDIAC: RRR ABDOMEN: Distended, soft, nontender, bowel sounds active EXTREMITIES: No clubbing, cyanosis, or edema. SKIN: Normal; no rash; no jaundice. 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 (Ruba Mena) Assessment and Plan Plan Assessment: - Abdominal pain that began last night and has since resolved. States it was generalized and constant. Reports starting last night, however per pts daughter she was recently seen by PCP for same and given an antibiotic which she did not take because she said it was too strong and antiemetic. Denies diarrhea, constipation, blood in stool, weight loss. CT abdomen and pelvis W/O IV contrast (11/27) --> There are inflammatory changes and fluid in the right midabdomen as well as a small amount of free fluid in the mesentery and pelvis with mildly dilated loops of small bowel seen greatest in the right mid abdomen. A developing obstruction may have this appearance versus an ileus pattern. There is also abnormal all wall thickening and adjacent stranding of the pericolonic fat of the descending colon focally which may reflect colonic neoplasm versus mild diverticulitis, favor the former. Direct visualization with colonoscopy should be considered if one has not recently been performed. Pt thinks her last colonoscopy was 4-5 years ago and believes it was a normal exam, unsure of who did it or where it was done. EGD/colon from 2002 --> Hiatal hernia. Gastritis. Hemorrhoids. Poor prep. - Nausea, vomiting- reports two episodes early this morning. Denies hematemesis and coffee ground emesis. Of note, recent travel, returned from [place] on November 09. Denies fever, chills, diarrhea. - Poor appetite- per pts daughter has been for the past week. Plan: Colonoscopy tomorrow Obtain consent Clear liquids today Mag Citrate prep NPO after MN CT concerning for possible developing obstruction, pt denies nausea, emesis at this time- if unable to tolerate prep or begins vomiting, place NGT to LIWS and SSE x 2 can be done in AM Antiemetics PRN Further recommendations based on findings of above Pt has been seen and examined by myself and Dr. Mcginnis and this note is written on her behalf (Ruba Mena) Physician Comments seen, examined agre with above colonoscopy if negative consider egd, cta based on clinical condition (Nayely Mcginnis MD) Ruba Mena Nov 27, 2017 13:55 Nayely Mcginnis MD Nov 28, 2017 08:26
--- NOTE | 2017-11-27 15:12 | EKG ---
Date Performed: 11/27/2017 Time Performed: 05:59:24 PTAGE: 82 years EKG: Sinus rhythm Since the previous tracing, no significant change noted NORMAL ECG PREVIOUS TRACING : 06/07/2010 10.42 DOCTOR: Larry Rawls Interpretating Date/Time 11/27/2017 15:09:47
[2017-11-27] MEDS ORDERED: MAGNESIUM CITRATE SOLN 300 ML BTL PO ONE (16:00)
[2017-11-27] MEDS: metroNIDAZOLE 500 MG INJ 100 ML IV SCH (16:04)
[2017-11-27] MEDS: MAGNESIUM CITRATE SOLN 300 ML BTL PO ONE ×2 (17:42→18:38)
[2017-11-27] MEDS ORDERED: ZOLPIDEM TARTRATE 5 MG TAB PO PRN (18:45)
--- NOTE | 2017-11-27 18:47 | HHI.HP ---
[facility] Yusef Delcid MD Admission Diagnosis ABDOMINAL PAIN Diagnoses: Travel History International Travel<30 Days: No Contact w/Intl Traveler <30 Da: No Traveled to Known Affected Are: No History of Present Illness Patient is a very pleasant 82-year-old female with past medical history of hypertension and glaucoma presented with complaints of abdominal pain, nausea and vomiting. Patient's daughter was at bedside and help a lot with the history. Apparently patient woke up at 4 AM with excruciating abdominal pain and vomited twice. After that she had for more episodes of emesis. No blood. Mainly vomited food. She has never had an episode like this. Patient has no prior history of abdominal surgeries in the past. No fevers or chills, patient has not passed any flatulence or bowel movement since yesterday. Patient just came back from [place] about 1.5 weeks ago. Daughter denies any sick contacts at home. No coughing, runny nose, sore throat, burning with urination. Currently , patient denies any abdominal pain. Review of Systems ROS Limitations: Language Barrier Per HPI with assistance of patient's daughter Past Family Social History Past Medical History HTN, glaucoma Past Surgical History Bilateral knee surgery left eye prosthetic Allergies: Coded Allergies: sulfamethoxazole (Unverified Allergy, Intermediate, 04/04/17) trimethoprim (Unverified Allergy, Intermediate, 04/04/17) Family History Father had diabetes, mother was healthy Social History No smoking history, alcohol use or illegal drug use Physical Exam Vital Signs Vital Signs Date Time Temp Pulse Resp B/P (MAP) Pulse Ox O2 Delivery O2 Flow Rate FiO2 11/27/17 16:00 96.5 70 16 146/94 (111) 100 11/27/17 12:00 96.2 99 16 196/92 (126) 95 11/27/17 11:39 199/95 (129) 11/27/17 07:01 18 11/27/17 06:24 85 16 138/82 (100) 100 Room Air 11/27/17 05:41 97 Room Air 11/27/17 04:44 97.6 101 16 201/95 (130) 99 Physical Exam GENERAL: This is a well-nourished, well-developed patient, in no apparent distress. SKIN: No rashes, ecchymoses or lesions. Cool and dry. HEAD: Atraumatic. Normocephalic. No temporal or scalp tenderness. EYES: Pupils equal round and reactive. Extraocular motions intact. No scleral icterus. No injection or drainage. ENT: Nose without drainage. Throat without erythema, tonsillar hypertrophy or exudate. Uvula midline. Airway patent. NECK: Trachea midline. CARDIOVASCULAR: Regular rate and rhythm without murmurs. RESPIRATORY: Clear to auscultation. Breath sounds equal bilaterally. No wheezes GASTROINTESTINAL: Abdomen soft, some discomfort with deep palpation in the left lower quadrant, nondistended. Bowel sounds are present. No guarding MUSCULOSKELETAL: Extremities without edema. Moves all extremities NEUROLOGICAL: Awake and alert. Normal speech. Laboratory Laboratory Tests Test 11/27/17 05:30 White Blood Count 13.1 Red Blood Count 4.28 Hemoglobin 11.6 Hematocrit 35.5 Mean Corpuscular Volume 82.9 Mean Corpuscular Hemoglobin 27.0 Mean Corpuscular Hemoglobin Concent 32.6 Red Cell Distribution Width 14.1 Platelet Count 488 Mean Platelet Volume 7.7 Neutrophils (%) (Auto) 89.6 Lymphocytes (%) (Auto) 6.3 Monocytes (%) (Auto) 1.9 Eosinophils (%) (Auto) 0.6 Basophils (%) (Auto) 1.6 Neutrophils # (Auto) 11.8 Lymphocytes # (Auto) 0.8 Monocytes # (Auto) 0.2 Eosinophils # (Auto) 0.1 Basophils # (Auto) 0.2 CBC Comment AUTO DIFF Differential Comment AUTO DIFF CONFIRMED Urine Collection Type CLEAN CATCH Urine Color YELLOW Urine Turbidity CLEAR Urine pH 6.0 Urine Specific [place] 1.025 Urine Protein 30 Urine Glucose (UA) NEG Urine Ketones TRACE Urine Occult Blood NEG Urine Nitrite NEG Urine Bilirubin NEG Urine Urobilinogen 0.2 Urine Leukocyte Esterase NEG Urine WBC 3-5 Urine Squamous Epithelial Cells 0-5 Urine Mucus MOD Microscopic Urinalysis Comment CULT NOT INDICATED Blood Urea Nitrogen 28 Creatinine 0.96 Random Glucose 130 Total Protein 7.6 Albumin 3.0 Calcium Level 8.8 Magnesium Level 2.2 Alkaline Phosphatase 76 Aspartate Amino Transf (AST/SGOT) 29 Alanine Aminotransferase (ALT/SGPT) 20 Total Bilirubin 0.3 Sodium Level 137 Potassium Level 4.6 Chloride Level 103 Carbon Dioxide Level 26.1 Anion Gap 8 Estimat Glomerular Filtration Rate 56 Total Creatine Kinase 93 Troponin I LESS THAN 0.02 Lipase 315 Result Diagram: 11/27/17 0530 11/27/17 0530 Imaging Last Impressions Chest X-Ray 11/27/17 0505 Signed Impressions: Service Date/Time: Monday, November 27, 2017 05:11 - CONCLUSION: Left apical density, unchanged from previous study. No infiltrate. Darren Castro MD Abdomen/Pelvis CT 11/27/17 0000 Signed Impressions: Service Date/Time: Monday, November 27, 2017 07:15 - CONCLUSION: There are inflammatory changes and fluid in the right midabdomen as well as a small amount of free fluid in the mesentery and pelvis with mildly dilated loops of small bowel seen greatest in the right mid abdomen. A developing obstruction may have this appearance versus an ileus pattern. There is also abnormal all wall thickening and adjacent stranding of the pericolonic fat of the descending colon focally which may reflect colonic neoplasm versus mild diverticulitis, favor the former. Direct visualization with colonoscopy should be considered if one has not recently been performed. Junior Cullen MD Caprini VTE Risk Assessment Caprini VTE Risk Assessment: Mod/High Risk (score >= 2) Caprini Risk Assessment Model Point Value = 1 Point Value = 2 Point Value = 3 Point Value = 5 Age 41-60 Minor surgery BMI > 25 kg/m2 Swollen legs Varicose veins or History of unexplained or recurrent spontaneous Oral contraceptives or hormone replacement Sepsis (< 1 month) Serious lung disease, including pneumonia (< 1 month) Abnormal pulmonary function Acute myocardial infarction Congestive heart failure (< 1 month) History of inflammatory bowel disease Medical patient at bed rest Age 61-74 Arthroscopic surgery Major open surgery (> 45 min) Laparoscopic surgery (> 45 min) Malignancy Confined to bed (> 72 hours) Immobilizing plaster cast Central venous access Age >= 75 History of VTE Family history of VTE Factor V Leiden Prothrombin [id number] Lupus anticoagulant Anticardiolipin antibodies Elevated serum homocysteine Heparin-induced thrombocytopenia Other congenital or acquired thrombophilia Stroke (< 1 month) Elective arthroplasty Hip, pelvis, or leg fracture Acute spinal cord injury (< 1 month) Prophylaxis Regimen Total Risk Factor Score Risk Level Prophylaxis Regimen 0-1 Low Early ambulation 2 Moderate Order ONE of the following: *Sequential Compression Device (SCD) *Heparin 5000 units SQ BID 3-4 Higher Order ONE of the following medications: *Heparin 5000 units SQ TID *Enoxaparin/Lovenox 40 mg SQ daily (WT < 150 kg, CrCl > 30 mL/min) *Enoxaparin/Lovenox 30 mg SQ daily (WT < 150 kg, CrCl > 10-29 mL/min) *Enoxaparin/Lovenox 30 mg SQ BID (WT < 150 kg, CrCl > 30 mL/min) AND/OR *Sequential Compression Device (SCD) 5 or more Highest Order ONE of the following medications: *Heparin 5000 units SQ TID (Preferred with Epidurals) *Enoxaparin/Lovenox 40 mg SQ daily (WT < 150 kg, CrCl > 30 mL/min) *Enoxaparin/Lovenox 30 mg SQ daily (WT < 150 kg, CrCl > 10-29 mL/min) *Enoxaparin/Lovenox 30 mg SQ BID (WT < 150 kg, CrCl > 30 mL/min) AND *Sequential Compression Device (SCD) Assessment and Plan Assessment and Plan Abdominal pain/nausea/vomiting: CT shows inflammatory changes and fluid in the right mid abdomen as well as small amount of free fluid in the mesentery and pelvis with mildly dilated loops of small bowel greatest seen in the right midabdomen. Concerns for obstruction versus ileus at this time. There is also concern for possible colonic neoplasm in the descending colon. Both GI and general surgery have been consulted. Patient scheduled for colonoscopy tomorrow morning. If patient unable to tolerate the prep, per GIs recommendations, NG tube should be placed. At this time, patient wants to try to take the prep orally and avoid the NG tube. I have ordered p.o. pain medications and IV pain medication as needed. Encourage ambulation. Zofran as needed for nausea or vomiting. Hypertension: Patient's home medication has been resumed. Vasotec as needed Mild leukocytosis: might be a reactive process. however pt has been started on flagyl per GS recs. DVT proph: SCDs for now as pt is scheduled for colonoscopy Code Status full Discussed Condition With patient and family members and ED physician Evelyn Villela MD Nov 27, 2017 18:47
[2017-11-27] MEDS: SODIUM CHLORIDE 0.9% FLUSH 10 ML FLUSH IV FLUSH SCH (21:26)
[2017-11-27] MEDS: DOCUSATE SODIUM 50 MG/SENNA 8.6 MG TAB PO SCH (21:32)
[2017-11-27] MEDS: ENALAPRILAT 1.25 MG/ML VIAL IV PUSH PRN (21:33)
[2017-11-28] VITALS (7 sets, daily range): BP systolic 144–199; BP diastolic 67–92; PULSE 77–96; RESP 16–20; TEMP 96.3–97.9; O2SAT 94–100
[2017-11-28] MEDS: metroNIDAZOLE 500 MG INJ 100 ML IV SCH ×2 (01:15→09:32)
--- NOTE | 2017-11-28 07:53 | GIPROC ---
[facility] [address] [place] [address], [id number] COLONOSCOPY PROCEDURE REPORT EXAM DATE: 11/28/2017 PATIENT NAME: Godwin Townsend MR #: [id number] BIRTHDATE: 1935 ENDOSCOPIST: Nayely Mcginnis MD ORDER #: [id number] DESKTOP SUPPORT MANAGER: Kesha Berg and Shital Watson STATUS: inpatient INDICATIONS: The patient is a 82 yr old female here for a colonoscopy due to abnormal ct PROCEDURE PERFORMED: Colonoscopy with biopsy MEDICATIONS: None and Per Anesthesia. PREP QUALITY: good PREP TYPE:Other: ESTIMATED BLOOD LOSS: None CONSENT: The patient understands the risks and benefits of the procedure and understands that these risks include, but are not limited to: sedation, allergic reaction, infection, perforation and/or bleeding. Alternative means of evaluation and treatment include, among others: physical exam, x-rays, and/or surgical intervention. The patient elects to proceed with this endoscopic procedure. medical equipment was checked for proper function. Hand hygiene and appropriate measures for infection prevention was taken. After the risks, benefits and alternatives of the procedure were thoroughly explained, Informed consent was verified, confirmed and timeout was successfully executed by the treatment team. A digital exam revealed decreased sphincter tone and revealed external hemorrhoids The Pentax [id number] endoscope was introduced through the anus and advanced to the cecum, which was identified by both the appendix and ileocecal valve. The instrument was then slowly withdrawn as the colon was fully examined. 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 Retroflexed views revealed internal hemorrhoids and Retroflexed views revealed small internal hemorrhoids The scope was then completely withdrawn from the patient and the procedure terminated. PROCEDURE WITHDRAWAL TIME:6minutes ADVERSE EVENTS: There were no complications. IMPRESSIONS: 1. Diverticulosis sigmoid,descending 2. Retroflexed views revealed internal hemorrhoids 3. Retroflexed views revealed small internal hemorrhoids 4. Revealed decreased sphincter tone 5. Revealed external hemorrhoids RECOMMENDATIONS: 1. Await biopsy results. Biopsy results will not be ready for 7-10 days. If you don't hear from us in two weeks, call our office for results. 2. Benefiber 2 tsp daily 3. Probiotics from any C or health food store 4. Yearly rectal exams RECALL: Return 10 years Colonoscopy Nayely Mcginnis MD eSigned: Nayely Mcginnis MD 11/28/2017 7:53 AM cc:
--- NOTE | 2017-11-28 08:26 | MB ---
cc: Dustin Livingston MD DATE: 11/27/2017 PERSON REQUESTING CONSULTATION: Dr. Yaz Villela REASON FOR CONSULTATION: Small bowel and colonic inflammation, abdominal pain, nausea, vomiting. HISTORY OF PRESENT ILLNESS: The patient is an 82-year-old female, non-Syriac speaking, originally from [place], who presented to [facility] with 3 days of nausea, vomiting and abdominal pain. The patient states that she went to [place] a few weeks ago and since then has "not felt right" in the abdominal area. She has never been sick like this before. She has been having bowel movements and passing gas throughout this time. She has no prior abdominal surgeries. She denies fever, chills, night sweats or any other complaints. In the Emergency Department, the patient underwent a CT scan which did show some inflammation of the small bowel and colon with possible gastro or colitis. White blood cell count was elevated at 13.1. The patient was admitted and placed on antibiotics. REVIEW OF SYSTEMS: A 12-point review of systems conducted in the chart and with the patient with the family translating is negative. PAST MEDICAL HISTORY: Hypertension, glaucoma. PAST SURGICAL HISTORY: Left eye prosthetic, bilateral knee surgery. ALLERGIES: SULFAMETHOXAZOLE, TRIMETHOPRIM. FAMILY HISTORY: Father had diabetes. Mother is healthy. SOCIAL HISTORY: The patient denies alcohol, tobacco or illicit drug use. Recent travel history, the patient in [place] a few weeks ago. PHYSICAL EXAMINATION: VITAL SIGNS: Blood pressure 146/94, heart rate 70, respiratory rate 16, temperature 96.5 degrees. GENERAL: The patient is a thin female in no acute distress. HEENT: Normocephalic, atraumatic. EYES: Sclerae is anicteric. Oral cavity is clear. Airway is patent. NECK: Supple. No JVD. LUNGS: Breath sounds present bilaterally. Nonlabored breathing pattern. HEART: Regular rate and rhythm. ABDOMEN: Soft, mildly distended. No peritonitis or rebound tenderness. No surgical scars. No organomegaly, no ascites. Normal bowel sounds. BACK: No CVA tenderness. EXTREMITIES: No clubbing, cyanosis or edema. NEUROLOGIC: The patient is alert and oriented. Judgment seems to be intact through translation. Nonfocal peripheral exam. Cranial nerves 2-12 are grossly intact. ASSESSMENT AND PLAN: The patient is an 82-year-old female, possible enteritis or colitis, abdominal pain. Agree with current management with coverage of antibiotics. I agree with stool studies and culture for ova and parasites due to the recent travel history. A colonoscopy for evaluation is also appropriate in my opinion. I do not see any indication for any acute surgical intervention at this time. We will follow with the patient and followup on the patient's workup, cultures and colonoscopy. Thank you very much for this consultation. MD PRIMITIVO Perez/EJRONIMO , 08:42 PM , 09:15 PM
[2017-11-28] MEDS: DOCUSATE SODIUM 50 MG/SENNA 8.6 MG TAB PO SCH (09:00)
[2017-11-28] MEDS: SODIUM CHLORIDE 0.9% FLUSH 10 ML FLUSH IV FLUSH SCH (09:31)
[2017-11-28] MEDS: METOPROLOL SUCCINATE 50 MG EXTENDED RELEASE TAB PO SCH (09:32)
[2017-11-28] MEDS ORDERED: PROPOFOL 200 MG/20 ML AMP IV ONE (12:00)
[2017-11-28 12:14] LABS: AUTOMATED NEUTROPHIL # 5.6 TH/MM3 (1.8-7.7); BASOPHIL # 0.1 TH/MM3 (0-0.2); BASOPHIL % 1.8 % (0.0-2.0); EOSINOPHIL # 0.1 TH/MM3 (0-0.4); EOSINOPHIL % 0.7 % (0.0-4.0); HEMATOCRIT 32.5 % (35.0-46.0); HEMOGLOBIN 10.5 GM/DL (11.6-15.3); LYMPH % 14.8 % (9.0-44.0); LYMPHOCYTE # 1.1 TH/MM3 (1.0-4.8); MEAN CELL VOLUME 83.6 FL (80.0-100.0); MEAN CORPUSCULAR HGB CONC 32.3 % (32.0-36.0); MEAN PLATELET VOLUME 7.6 FL (7.0-11.0); MONO % 4.8 % (0.0-8.0); MONOCYTE # 0.3 TH/MM3 (0-0.9); NEUT % 77.9 % (16.0-70.0); PLATELET COUNT 465 TH/MM3 (150-450); WHITE BLOOD COUNT 7.3 TH/MM3 (4.0-11.0)
--- NOTE | 2017-11-28 12:18 | HHI.PR ---
Subjective Remarks Nursing denies any deterioration since last night. Patient's grandson is at the bedside. Patient is currently post colonoscopy since this morning. Patient herself denies any abdominal pain or further vomiting since last night. Is tolerating Jell-O well postprocedure. Objective Vital Signs Date Time Temp Pulse Resp B/P (MAP) Pulse Ox O2 Delivery O2 Flow Rate FiO2 11/28/17 10:30 97.0 87 16 198/92 (127) 94 11/28/17 08:12 75 14 176/75 (108) 100 11/28/17 07:56 98.4 70 14 152/79 (103) 100 11/28/17 07:02 97.5 77 18 145/75 (98) 95 11/28/17 04:00 97.5 77 18 145/75 (98) 95 11/28/17 00:00 97.8 81 19 148/85 (106) 96 11/28/17 00:00 97.9 81 19 148/85 (106) 96 11/27/17 21:33 146/98 (114) Automatic Cuff 11/27/17 20:00 97.1 83 20 186/99 (128) 100 11/27/17 16:00 96.5 70 16 146/94 (111) 100 I/O 11/27/17 11/27/17 11/27/17 11/28/17 11/28/17 11/28/17 06:59 14:59 22:59 06:59 14:59 22:59 Intake Total 350 ml 1329 ml 791 ml 400 ml Balance 350 ml 1329 ml 791 ml 400 ml Intake Oral 0 ml IV Total 350 ml 1329 ml 791 ml Other 400 ml # Voids 4 0 # Bowel Movements 3 Result Diagram: 11/27/17 0530 11/27/17 0530 Objective Remarks Abdomen is soft, nontender, nondistended, patient sitting up in the bedside, no acute distress, awake, alert A/P Assessment and Plan Abdominal pain/nausea/vomiting: -Much improved since admission, post colonoscopy which showed diverticulosis in the sigmoid with some hemorrhoids. No colonic mass noted. -If tolerates p.o. intake well today, anticipate discharge. Hypertension: Patient's home medication has been resumed. Vasotec as needed Mild leukocytosis: might be a reactive process. however pt has been started on Flagyl per GS recs. DVT proph: SCDs for now as pt is scheduled for colonoscopy Addendum: Patient tolerated p.o. intake well, wants to advance diet with no further vomiting or abdominal pain. Clear discharge from GI standpoint. Patient has met maximal benefit from hospitalization is clinically stable for discharge. Discussed with patient and daughter at bedside the need for better blood pressure control with a new prescription for lisinopril. Joseph Stratton MD Nov 28, 2017 12:18
[2017-11-28 12:19] LABS: CALCIUM 8.7 MG/DL (8.5-10.1)
[2017-11-28 12:20] LABS: BICARBONATE 24.6 MEQ/L (21.0-32.0)
[2017-11-28] MEDS: ENALAPRILAT 1.25 MG/ML VIAL IV PUSH PRN (12:28)
[2017-11-28] MEDS: SODIUM CHLOR 0.9% 1000 ML INJ 1,000 ML IV SCH (12:29)
[2017-11-28 12:56] LABS: CREATININE 0.81 MG/DL (0.50-1.00)
[2017-11-28] MEDS ORDERED: LISI10TA3 PO (14:37)
--- NOTE | 2017-11-28 14:37 | HHI.DCPOC ---
Discharge Care Plan Diagnosis: (1) Vomiting (2) Abdominal pain (3) Diverticulosis (4) Gastritis (5) Hypertension Goals to Promote Your Health * To prevent worsening of your condition and complications * To maintain your health at the optimal level Directions to Meet Your Goals Take your medications as prescribed Follow your dietary instruction Follow activity as directed Keep your appointments as scheduled Take your immunizations and boosters as scheduled If your symptoms worsen call your PCP, if no PCP go to Urgent Care Center or Emergency Room Smoking is Dangerous to Your Health. Avoid second hand smoke Call the 24-hour hour crisis hotline for domestic abuse at Joseph Stratton MD Nov 28, 2017 14:37
[2017-11-28] MEDS ORDERED: METR1TAB76 PO (14:42)
[2017-11-28] MEDS ORDERED: ONDA4TAB7 SL (14:42)
[2017-11-28] MEDS ORDERED: ENALAPRILAT 1.25 MG/ML VIAL IV PUSH PRN (14:45)
[2017-11-28] MEDS ORDERED: NIFEdipine 10 MG CAP PO ONE (15:00)
[2017-11-28] MEDS ORDERED: LISINOPRIL 5 MG TAB PO ONE (15:00)
[2017-11-28] MEDS ORDERED: cloNIDine HCL 0.1 MG TAB PO ONE (15:45)
[2017-11-29] MEDS ORDERED: LISINOPRIL 5 MG TAB PO SCH (09:00)
== END 2017-11-28 16:45 | disposition home or self-care (01) ==
LOC: PHED 04:37 → PHEDA 10:05 → PH3A 11:51
PROVIDERS: ADMIT Hospitalist; ATTEND Hospitalist
DX: K29.70 Gastritis, unspecified, without bleeding (principal); R00.0 Tachycardia, unspecified; I70.0 Atherosclerosis of aorta; R06.02 Shortness of breath; I10 Essential (primary) hypertension; D72.829 Elevated white blood cell count, unspecified; H40.9 Unspecified glaucoma; R63.0 Anorexia; R53.1 Weakness; M19.90 Unspecified osteoarthritis, unspecified site; Z79.82 Long term (current) use of aspirin
CPT/HCPCS: 71045; 74176; 80048; 80053; 81001; 82550; 83690; 83735; 84484; 85025; 88305; 93005; 96361; 96365; 96366; 96375; 96376; 99285; G0378; J7030; J7040

== ENCOUNTER → 2017-12-08 | Outpatient (CLI) | payer MEDICARE, OTHER ==
[~2017-12-08] MED LIST changes: -BACT800T5 PO; -DICL50TA3 PO; +LISI10TA3 PO; -MEDR4PAK3 PO; -METO100T9 PO; +METO1TAB43 PO; +METR1TAB76 PO; +ONDA4TAB7 SL; -ULTR50TA PO
[2017-12-08 10:24] LABS: AUTOMATED NEUTROPHIL # 4.4 TH/MM3 (1.8-7.7); BASOPHIL # 0.1 TH/MM3 (0-0.2); BASOPHIL % 1.4 % (0.0-2.0); EOSINOPHIL # 0.3 TH/MM3 (0-0.4); EOSINOPHIL % 4.8 % (0.0-4.0); HEMATOCRIT 33.7 % (35.0-46.0); LYMPHOCYTE # 1.5 TH/MM3 (1.0-4.8); MEAN CORPUSCULAR HEMOGLOBIN 27.6 PG (27.0-34.0); MEAN CORPUSCULAR HGB CONC 32.8 % (32.0-36.0); MEAN PLATELET VOLUME 7.6 FL (7.0-11.0); MONO % 7.8 % (0.0-8.0); MONOCYTE # 0.5 TH/MM3 (0-0.9); PLATELET COUNT 482 TH/MM3 (150-450); RED BLOOD COUNT 4.01 MIL/MM3 (4.00-5.30); RED CELL DISTRIBUTION WIDTH 14.6 % (11.6-17.2); WHITE BLOOD COUNT 6.9 TH/MM3 (4.0-11.0)
[2017-12-08 10:31] LABS: ALBUMIN 3.3 GM/DL (3.4-5.0); AST (GOT) 27 U/L (15-37); BICARBONATE 26.3 MEQ/L (21.0-32.0); BLOOD UREA NITROGEN 22 MG/DL (7-18); CALCIUM 8.9 MG/DL (8.5-10.1); CHLORIDE 106 MEQ/L (98-107); CREATININE 1.09 MG/DL (0.50-1.00); GLOMERULAR FILTRATION RATE 48 ML/MIN (>89); GLUCOSE,FASTING 86 MG/DL (74-99); SODIUM (NA) 138 MEQ/L (136-145)
[2017-12-08 10:32] LABS: CHOLESTEROL 197 MG/DL (120-200)
[2017-12-08 10:35] LABS: ALKALINE PHOSPHATASE 67 U/L (45-117); ALT (GPT) 25 U/L (10-53); CHOLESTEROL/ HDL RATIO 4.33 RATIO; HDL CHOLESTEROL 45.4 MG/DL (40.0-60.0); LDL CHOLESTEROL 116 MG/DL (0-99); TOTAL BILIRUBIN ADULT 0.2 MG/DL (0.2-1.0); TOTAL PROTEIN 7.7 GM/DL (6.4-8.2); TRIGLYCERIDES 179 MG/DL (42-150)
== END ==
LOC: PLAB 07:49
PROVIDERS: ATTEND Internal Medicine
DX: I10 Essential (primary) hypertension (principal)
CPT/HCPCS: 36415; 80053; 80061; 85025

== ENCOUNTER 2018-03-27 16:23 | Inpatient (IN) ==
[2018-03-27] MEDS ORDERED: Sod Chloride 0.9% Inj 1,000 ML IV.SIG ONE (17:27)
--- NOTE | 2018-03-27 18:09 | XR ---
EXAM DATE: 03/27/2018 6:01 PM EDT AGE/SEX: 82 years / Female INDICATIONS: Short of breath. CLINICAL DATA: This is the patient's initial encounter. Patient reports that signs and symptoms have been present for 1 day and indicates a pain score of 4/10. MEDICAL/SURGICAL HISTORY: Non-responsive. Non-responsive. COMPARISON: [facility]PO, CHEST SINGLE AP, 11/27/2017. POI, XR CHEST PA AND LAT, 04/04/2017. . FINDINGS: Small lung volumes with mild atelectasis noted. No pneumonia demonstrated. No pleural effusion or pne umothorax. Chronic scarring at the left lung apex again seen. CONCLUSION: Mild atelectasis. No perceptible pneumonia. Electronically signed by: Britton Goodwin MD 03/27/2018 6:08 PM EDT
[2018-03-27 18:25] LABS: Baso # (Auto) 0.2 th/mm3 (0.0-0.2); Baso % (Auto) 1.3 % (0.0-2.0); Eos % (Auto) 0.1 % (0.0-4.0); Hematocrit 29.6 % (35.0-46.0); Hemoglobin 10.1 gm/dL (11.6-15.3); Lymph # (Auto) 1.1 th/mm3 (1.0-4.8); Lymph % (Auto) 8.2 % (9.0-44.0); Mean Corpuscular HGB Conc 34.1 % (32.0-36.0); Mean Corpuscular Hemoglobin 28.4 pg (27.0-34.0); Mean Platelet Volume 7.7 fL (7.0-11.0); Mono # (Auto) 0.6 th/mm3 (0.0-0.9); Mono % (Auto) 4.6 % (0.0-8.0); Neut # (Auto) 11.6 th/mm3 (1.8-7.7); Neut % (Auto) 85.8 % (16.0-70.0); Platelet Count 404 th/mm3 (150-450); Red Blood Count 3.57 mil/mm3 (4.00-5.30); Red Cell Distribution Width 14.6 % (11.6-17.2); White Blood Count 13.5 th/mm3 (4.0-11.0)
[2018-03-27 18:34] LABS: Chloride 105 meq/L (98-107); Potassium 4.6 meq/L (3.5-5.1); Sodium 137 meq/L (136-145)
[2018-03-27] MEDS ORDERED: Acetaminophen 500 MG Tablet PO STA (18:37)
[2018-03-27] MEDS ORDERED: Ibuprofen 600 MG Tablet PO STA (18:37)
[2018-03-27 18:39] LABS: Albumin 2.8 g/dL (3.4-5.0); Anion Gap 8 meq/L (5-15); Calcium 8.2 mg/dL (8.5-10.1); Carbon Dioxide 23.6 meq/L (21.0-32.0); Glucose,Random 123 mg/dL (74-106)
[2018-03-27 18:40] LABS: Blood Urea Nitrogen 26 mg/dL (7-18)
[2018-03-27 18:42] LABS: Alanine Aminotransferase 23 U/L (10-53); Aspartate Aminotransferase 31 U/L (15-37)
[2018-03-27 18:43] LABS: Glomerular Filtration Rate 48 mL/min (>89)
[2018-03-27 18:44] LABS: Total Protein 7.2 g/dL (6.4-8.2)
[2018-03-27 18:45] LABS: Alkaline Phosphatase 65 U/L (45-117)
[2018-03-27 18:47] LABS: Troponin I 0.06 ng/mL (0.02-0.05)
[2018-03-27 18:49] LABS: Creatine Kinase 87 U/L (26-192)
[2018-03-27 18:53] LABS: Thyroid Stimulating Hormone 0.669 uIU/mL (0.358-3.740)
[2018-03-27 19:00] LABS: Bilirubin,Urine Negative (Negative); Clarity,Urine Clear (Clear); Color,Urine Yellow (Yellw/Straw); Glucose,Urine (UA) Negative (Negative); Leukocyte Esterase,Urine Negative (Negative); Nitrite,Urine Negative (Negative); PH,Urine 5.5 (5.0-8.5); Specific Gravity,Urine 1.025 (1.002-1.035); Urobilinogen,Urine 0.2 mg/dL (Less than 2)
[2018-03-27 19:06] LABS: RBC,Urine 0-3 /hpf (0-3); WBC,Urine 0-5 /hpf (0-5)
[2018-03-27 19:07] LABS: Bacteria,Urine Occasional /hpf
[2018-03-27 19:12] LABS: Platelet Estimate Normal (Normal); Platelet Morphology Normal (Normal); RBC Morphology Normal (Normal)
[2018-03-27 19:44] LABS: Prothrombin Time 10.5 sec (9.8-11.6)
[2018-03-27 19:46] LABS: D-Dimer 1.14 mg/L FEU (0.00-0.50)
--- NOTE | 2018-03-27 22:04 | CT ---
EXAM DATE: 03/27/2018 9:55 PM EDT AGE/SEX: 82 years / Female INDICATIONS: Dizziness. CLINICAL DATA: This is the patient's initial encounter. Patient reports that signs and symptoms have been present for 1 day and indicates a pain score of 0/10. MEDICAL/SURGICAL HISTORY: None. . Left eye prosthetic. RADIATION DOSE: 47.76 CTDI (mGy) COMPARISON: No prior exams available for comparison. TECHNIQUE: CT of the head without contrast. Using automated exposure control and adjustment of the mA and/or kV according to patient size, radiation dose was kept as low as reasonably achievable to ob tain optimal diagnostic quality images. DICOM format image data is available electronically for revi ew and comparison. FINDINGS: Cerebrum: The ventricles are normal for age. No evidence of midline shift, mass lesion, hemorrhage or acute infarction. No extraaxial fluid collections are seen. Chronic appearing low-attenuation see n in the periventricular white matter. Posterior Fossa: The cerebellum and brainstem are intact. The 4th ventricle is midline. The cerebe llopontine angle is unremarkable. Extracranial: The visualized portion of the orbits is intact. 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 Skull: The calvaria is intact. No evidence of skull fracture. CONCLUSION: 1. No acute intracranial abnormality. 2. Chronic white matter changes. . Electronically signed by: Britton Goodwin MD 03/27/2018 10:02 PM EDT
--- NOTE | 2018-03-27 22:11 | CT ---
EXAM DATE: 03/27/2018 9:58 PM EDT AGE/SEX: 82 years / Female INDICATIONS: Evaluate for embolism. Elevated d-dimer. CLINICAL DATA: This is the patient's initial encounter. Patient reports that signs and symptoms have been present for 1 day and indicates a pain score of 0/10. MEDICAL/SURGICAL HISTORY: None. None. RADIATION DOSE: 8.96 CTDI (mGy) COMPARISON: POI, CT CHEST W/ CONTRAST, 12/02/2015. . TECHNIQUE: Volumetric scanning was performed using a multi-row detector CT scanner during bolus infu soila of 60 ml Omnipaque 350 (iohexol) nonionic water-soluble contrast as a single exam dose. The monique a was post processed with a variety of visualization algorithms including full volume maximum intensi ty projection and sliding thin slab reformation. Using automated exposure control and adjustment of the mA and/or kV according to patient size, radiation dose was kept as low as reasonably achievable t o obtain optimal diagnostic quality images. DICOM format image data is available electronically for review and comparison. FINDINGS: No pulmonary embolus. Heart size within normal limits. Coronary artery calcification present. Chronic parenchymal scarring again seen left apex with a few surrounding subcentimeter nodules, all n ot significantly changed. There is mild emphysema. No acute pneumonia. No pleural effusion or pneumot horax. CONCLUSION: 1. No pulmonary embolus. 2. Fibroemphysematous changes. 3. Chronic left apex parenchymal scarring and subcentimeter nodules not significantly changed. Electronically signed by: Britton Goodwin MD 03/27/2018 10:10 PM EDT
[2018-03-27] MEDS ORDERED: Piperacil/Tazo 3.375 GM Premix 50 ML IV.SIG STA (22:29)
[2018-03-27] MEDS ORDERED: Vancomycin Inj 1 GM/200 ML PIGGYBACK IV.SIG ONE (22:29)
--- NOTE | 2018-03-27 22:40 | ED ---
HPI General Chief complaint: Weakness Stated complaint: Body Aches Time Seen by Provider: 03/27/18 17:12 History of Present Illness HPI narrative: 82-year-old female here for evaluation of generalized weakness. Patient reports a sudden onset of weakness all over her body as well as pain all over her body that started this morning. Patient ambulates with no problems at home, takes care of her grandchildren, suddenly this morning she was feeling weak and tired. She denies any chest pain or shortness of breath. She states that she had pneumonia about 7 years ago. No nausea or vomiting, no fever or chills or night sweats. She has no neck rigidity or light sensitivity. Related Data Home Medications Medication Instructions Recorded Confirmed alprazolam 0.25 mg PO HS 03/27/18 03/27/18 diclofenac sodium 75 mg PO BID PRN 03/27/18 03/27/18 metoprolol tartrate 100 mg PO BID 03/27/18 03/27/18 Allergies Allergy/AdvReac Type Severity Reaction Status Date / Time sulfamethoxazole Allergy Intermediate Generalized Verified 03/27/18 20:22 Rash trimethoprim Allergy Intermediate Diarrhea Verified 03/27/18 20:22 Review of Systems ROS: all other systems reviewed are negative [facility] Social History Social History Substance History: No History of Abuse Second Hand Smoke Exposure: No Smoking Status: Never smoker How Often Do You Have a Drink Containing Alcohol: Never Recent Travel in [facility] within the Last 8 Weeks: No Recent Out of Country Travel within the Last 8 Weeks: No Immunization History Tetanus Immunization: Unsure Hx Influenza Vaccine This Season: No Exam Narrative Exam Narrative: GENERAL: Alert oriented 3 SKIN: Focused skin assessment warm/dry. HEAD: Atraumatic. Normocephalic. EYES: Pupils equal and round. No scleral icterus. No injection or drainage. ENT: No nasal bleeding or discharge. Mucous membranes pink and moist. NECK: Trachea midline. No JVD. CARDIOVASCULAR: Systolic murmur left third intercostal space, sinus tachycardia. RESPIRATORY: No accessory muscle use. Clear to auscultation. Breath sounds equal bilaterally. GASTROINTESTINAL: Abdomen soft, non-tender, nondistended. Hepatic and splenic margins not palpable. MUSCULOSKELETAL: No obvious deformities. No clubbing. No cyanosis. No edema. NEUROLOGICAL: Awake and alert. No obvious cranial nerve deficits. Motor grossly within normal limits. Normal speech. PSYCHIATRIC: Appropriate mood and affect; insight and judgment normal. Course Initial Documented Vital Signs Temperature 99.5 F 03/27/18 16:29 Pulse Rate 120 H 03/27/18 16:29 Respiratory Rate 16 03/27/18 16:29 Blood Pressure 159/73 H 03/27/18 16:29 Pulse Oximetry 96 03/27/18 16:29 Last Documented Vital Signs Temperature 97.9 F 03/30/18 12:00 Pulse Rate 72 03/30/18 12:00 Respiratory Rate 17 03/30/18 12:00 Blood Pressure 196/82 H 03/30/18 12:00 Pulse Oximetry 100 03/30/18 12:00 Medical Decision Making MDM Narrative Medical decision making narrative: 82-year-old female here for generalized weakness and pain all over her body. She has no chest pain or shortness of breath. Vitals concerning for elevated temperature, tachycardia. labs concerning for leukocytosis with left shift, elevated troponin of 0.06 up to 0.11. Physical exam shows audible systolic murmur, EKG shows no ST segment elevation or depression. CT head is negative, CAT scan of the chest does show some fibrosis without evidence of pneumonia. Blood cultures were drawn, sepsis protocol was done, IV fluid bolus was given, broad-spectrum IV antibiotics started. I spoke with the sales director validation leader dr. Stoll who recommended sending the patient to the [facility], we will treat the patient for sepsis although there is no confirmed source of infection, she has no neck rigidity or light sensitivity. Endocarditis and pneumonia on top of the differential, there is no concern for meningitis given the patient has no symptoms. Patient will be admitted to the [facility] ICU for further evaluation and management. Lab Data Result diagrams: 03/30/18 07:38 03/28/18 05:05 Lab Results 03/27/18 03/27/18 03/27/18 Range/Units 18:18 18:18 18:30 CBC w Diff Slide review pending WBC 13.5 H (4.0-11.0) th/mm3 RBC 3.57 L (4.00-5.30) mil/mm3 Hgb 10.1 L (11.6-15.3) gm/dL Hct 29.6 L (35.0-46.0) % MCV 83.0 (80.0-100.0) fL MCH 28.4 (27.0-34.0) pg MCHC 34.1 (32.0-36.0) % RDW 14.6 (11.6-17.2) % Plt Count 404 (150-450) th/mm3 MPV 7.7 (7.0-11.0) fL Neut % (Auto) 85.8 H (16.0-70.0) % Lymph % (Auto) 8.2 L (9.0-44.0) % [place] % (Auto) 4.6 (0.0-8.0) % Eos % (Auto) 0.1 (0.0-4.0) % Baso % (Auto) 1.3 (0.0-2.0) % Neut # (Auto) 11.6 H (1.8-7.7) th/mm3 Lymph # (Auto) 1.1 (1.0-4.8) th/mm3 [place] # (Auto) 0.6 (0.0-0.9) th/mm3 Eos # (Auto) 0.0 (0.0-0.4) th/mm3 Baso # (Auto) 0.2 (0.0-0.2) th/mm3 WBC Differential . Diff Scan Auto diff confirmed Differential Comment . Platelet Estimate Normal (Normal) Platelet Morphology Normal (Normal) RBC Morphology Normal (Normal) PT (9.8-11.6) sec INR Ratio APTT (24.3-30.1) sec D-Dimer Quant (PE/DVT) (0.00-0.50) mg/L FEU Sodium 137 (136-145) meq/L Potassium 4.6 (3.5-5.1) meq/L Chloride 105 (98-107) meq/L Carbon Dioxide 23.6 (21.0-32.0) meq/L Anion Gap 8 (5-15) meq/L BUN 26 H (7-18) mg/dL Creatinine 1.10 H (0.50-1.00) mg/dL Estimated GFR 48 L (>89) mL/min Random Glucose 123 H (74-106) mg/dL Lactic Acid (0.4-2.0) mmol/L Calcium 8.2 L (8.5-10.1) mg/dL Total Bilirubin 0.3 (0.2-1.0) mg/dL AST 31 (15-37) U/L ALT 23 (10-53) U/L Alkaline Phosphatase 65 (45-117) U/L Ammonia (11-32) mcmol/L Total Creatine Kinase 87 (26-192) U/L Troponin I 0.06 H (0.02-0.05) ng/mL Total Protein 7.2 (6.4-8.2) g/dL Albumin 2.8 L (3.4-5.0) g/dL TSH 0.669 (0.358-3.740) uIU/mL Urine Color Yellow (Yellw/Straw) Urine Clarity Clear (Clear) Urine pH 5.5 (5.0-8.5) Ur Specific [place] 1.025 (1.002-1.035) Urine Protein Trace (Neg-Trace) mg/dL Urine Glucose (UA) Negative (Negative) mg/dL Urine Ketones Negative (Negative) mg/dL Urine Occult Blood Trace (Negative) Urine Nitrate Negative (Negative) Urine Bilirubin Negative (Negative) Urine Urobilinogen 0.2 (Less than 2) mg/dL Ur Leukocyte Esterase Negative (Negative) Urine RBC 0-3 (0-3) /hpf Urine WBC 0-5 (0-5) /hpf Ur Squamous Epith Cells 6-10 H (0-5) /hpf Urine Bacteria Occasional H (None) /hpf Micro UA Comment Culture not ind Urine Culture Comments Culture not ind Nasal Screen MRSA (PCR) (Negative) 03/27/18 03/27/18 03/27/18 Range/Units 18:45 19:15 19:20 CBC w Diff WBC (4.0-11.0) th/mm3 RBC (4.00-5.30) mil/mm3 Hgb (11.6-15.3) gm/dL Hct (35.0-46.0) % MCV (80.0-100.0) fL MCH (27.0-34.0) pg MCHC (32.0-36.0) % RDW (11.6-17.2) % Plt Count (150-450) th/mm3 MPV (7.0-11.0) fL Neut % (Auto) (16.0-70.0) % Lymph % (Auto) (9.0-44.0) % [place] % (Auto) (0.0-8.0) % Eos % (Auto) (0.0-4.0) % Baso % (Auto) (0.0-2.0) % Neut # (Auto) (1.8-7.7) th/mm3 Lymph # (Auto) (1.0-4.8) th/mm3 [place] # (Auto) (0.0-0.9) th/mm3 Eos # (Auto) (0.0-0.4) th/mm3 Baso # (Auto) (0.0-0.2) th/mm3 WBC Differential Diff Scan Differential Comment Platelet Estimate (Normal) Platelet Morphology (Normal) RBC Morphology (Normal) PT 10.5 (9.8-11.6) sec INR 1.0 Ratio APTT 25.0 (24.3-30.1) sec D-Dimer Quant (PE/DVT) 1.14 H (0.00-0.50) mg/L FEU Sodium (136-145) meq/L Potassium (3.5-5.1) meq/L Chloride (98-107) meq/L Carbon Dioxide (21.0-32.0) meq/L Anion Gap (5-15) meq/L BUN (7-18) mg/dL Creatinine (0.50-1.00) mg/dL Estimated GFR (>89) mL/min Random Glucose (74-106) mg/dL Lactic Acid 1.8 (0.4-2.0) mmol/L Calcium (8.5-10.1) mg/dL Total Bilirubin (0.2-1.0) mg/dL AST (15-37) U/L ALT (10-53) U/L Alkaline Phosphatase (45-117) U/L Ammonia Less than 10 L (11-32) mcmol/L Total Creatine Kinase (26-192) U/L Troponin I (0.02-0.05) ng/mL Total Protein (6.4-8.2) g/dL Albumin (3.4-5.0) g/dL TSH (0.358-3.740) uIU/mL Urine Color (Yellw/Straw) Urine Clarity (Clear) Urine pH (5.0-8.5) Ur Specific [place] (1.002-1.035) Urine Protein (Neg-Trace) mg/dL Urine Glucose (UA) (Negative) mg/dL Urine Ketones (Negative) mg/dL Urine Occult Blood (Negative) Urine Nitrate (Negative) Urine Bilirubin (Negative) Urine Urobilinogen (Less than 2) mg/dL Ur Leukocyte Esterase (Negative) Urine RBC (0-3) /hpf Urine WBC (0-5) /hpf Ur Squamous Epith Cells (0-5) /hpf Urine Bacteria (None) /hpf Micro UA Comment Urine Culture Comments Nasal Screen MRSA (PCR) (Negative) 03/27/18 03/28/18 03/28/18 Range/Units 20:50 04:40 05:05 CBC w Diff WBC 11.3 H (4.0-11.0) th/mm3 RBC 3.33 L (4.00-5.30) mil/mm3 Hgb 9.2 L (11.6-15.3) gm/dL Hct 28.8 L (35.0-46.0) % MCV 86.5 D (80.0-100.0) fL MCH 27.5 (27.0-34.0) pg MCHC 31.8 L (32.0-36.0) % RDW 15.2 (11.6-17.2) % Plt Count 339 (150-450) th/mm3 MPV 7.5 (7.0-11.0) fL Neut % (Auto) 81.3 H (16.0-70.0) % Lymph % (Auto) 10.8 (9.0-44.0) % [place] % (Auto) 7.0 (0.0-8.0) % Eos % (Auto) 0.6 (0.0-4.0) % Baso % (Auto) 0.3 (0.0-2.0) % Neut # (Auto) 9.2 H (1.8-7.7) th/mm3 Lymph # (Auto) 1.2 (1.0-4.8) th/mm3 [place] # (Auto) 0.8 (0.0-0.9) th/mm3 Eos # (Auto) 0.1 (0.0-0.4) th/mm3 Baso # (Auto) 0.0 (0.0-0.2) th/mm3 WBC Differential . Diff Scan Differential Comment Auto diff final Platelet Estimate (Normal) Platelet Morphology (Normal) RBC Morphology (Normal) PT (9.8-11.6) sec INR Ratio APTT (24.3-30.1) sec D-Dimer Quant (PE/DVT) (0.00-0.50) mg/L FEU Sodium (136-145) meq/L Potassium (3.5-5.1) meq/L Chloride (98-107) meq/L Carbon Dioxide (21.0-32.0) meq/L Anion Gap (5-15) meq/L BUN (7-18) mg/dL Creatinine (0.50-1.00) mg/dL Estimated GFR (>89) mL/min Random Glucose (74-106) mg/dL Lactic Acid (0.4-2.0) mmol/L Calcium (8.5-10.1) mg/dL Total Bilirubin (0.2-1.0) mg/dL AST (15-37) U/L ALT (10-53) U/L Alkaline Phosphatase (45-117) U/L Ammonia (11-32) mcmol/L Total Creatine Kinase (26-192) U/L Troponin I 0.11 H (0.02-0.05) ng/mL Total Protein (6.4-8.2) g/dL Albumin (3.4-5.0) g/dL TSH (0.358-3.740) uIU/mL Urine Color (Yellw/Straw) Urine Clarity (Clear) Urine pH (5.0-8.5) Ur Specific [place] (1.002-1.035) Urine Protein (Neg-Trace) mg/dL Urine Glucose (UA) (Negative) mg/dL Urine Ketones (Negative) mg/dL Urine Occult Blood (Negative) Urine Nitrate (Negative) Urine Bilirubin (Negative) Urine Urobilinogen (Less than 2) mg/dL Ur Leukocyte Esterase (Negative) Urine RBC (0-3) /hpf Urine WBC (0-5) /hpf Ur Squamous Epith Cells (0-5) /hpf Urine Bacteria (None) /hpf Micro UA Comment Urine Culture Comments Nasal Screen MRSA (PCR) Not detected (Negative) 03/28/18 03/30/18 Range/Units 05:05 07:38 CBC w Diff WBC 7.5 (4.0-11.0) th/mm3 RBC 3.48 L (4.00-5.30) mil/mm3 Hgb 9.6 L (11.6-15.3) gm/dL Hct 29.8 L (35.0-46.0) % MCV 85.7 (80.0-100.0) fL MCH 27.5 (27.0-34.0) pg MCHC 32.1 (32.0-36.0) % RDW 14.3 (11.6-17.2) % Plt Count 395 (150-450) th/mm3 MPV 7.6 (7.0-11.0) fL Neut % (Auto) (16.0-70.0) % Lymph % (Auto) (9.0-44.0) % [place] % (Auto) (0.0-8.0) % Eos % (Auto) (0.0-4.0) % Baso % (Auto) (0.0-2.0) % Neut # (Auto) (1.8-7.7) th/mm3 Lymph # (Auto) (1.0-4.8) th/mm3 [place] # (Auto) (0.0-0.9) th/mm3 Eos # (Auto) (0.0-0.4) th/mm3 Baso # (Auto) (0.0-0.2) th/mm3 WBC Differential Diff Scan Differential Comment Platelet Estimate (Normal) Platelet Morphology (Normal) RBC Morphology (Normal) PT (9.8-11.6) sec INR Ratio APTT (24.3-30.1) sec D-Dimer Quant (PE/DVT) (0.00-0.50) mg/L FEU Sodium 142 (136-145) meq/L Potassium 3.7 D (3.5-5.1) meq/L Chloride 108 H (98-107) meq/L Carbon Dioxide 22.2 (21.0-32.0) meq/L Anion Gap 12 (5-15) meq/L BUN 19 H (7-18) mg/dL Creatinine 0.91 (0.50-1.00) mg/dL Estimated GFR 59 L (>89) mL/min Random Glucose 97 (74-106) mg/dL Lactic Acid (0.4-2.0) mmol/L Calcium 8.2 L (8.5-10.1) mg/dL Total Bilirubin 0.4 (0.2-1.0) mg/dL AST 19 (15-37) U/L ALT 17 (10-53) U/L Alkaline Phosphatase 61 (45-117) U/L Ammonia (11-32) mcmol/L Total Creatine Kinase (26-192) U/L Troponin I (0.02-0.05) ng/mL Total Protein 6.6 D (6.4-8.2) g/dL Albumin 2.7 L (3.4-5.0) g/dL TSH (0.358-3.740) uIU/mL Urine Color ([place]ell[place]/Straw) Urine Clarity (Clear) Urine pH (5.0-8.5) Ur Specific [place] (1.002-1.035) Urine Protein (Neg-Trace) mg/dL Urine Glucose (UA) (Negative) mg/dL Urine Ketones (Negative) mg/dL Urine Occult Blood (Negative) Urine Nitrate (Negative) Urine Bilirubin (Negative) Urine Urobilinogen (Less than 2) mg/dL Ur Leukocyte Esterase (Negative) Urine RBC (0-3) /hpf Urine WBC (0-5) /hpf Ur Squamous Epith Cells (0-5) /hpf Urine Bacteria (None) /hpf Micro UA Comment Urine Culture Comments Nasal Screen MRSA (PCR) (Negative) Imaging Data Radiologist's impression: Chest X-Ray 03/27/18 17:27 CONCLUSION: Mild atelectasis. No perceptible pneumonia. Chest CTA 03/27/18 19:55 CONCLUSION: 1. No pulmonary embolus. 2. Fibroemphysematous changes. 3. Chronic left apex parenchymal scarring and subcentimeter nodules not significantly changed. Head CT 03/27/18 19:55 CONCLUSION: 1. No acute intracranial abnormality. 2. Chronic white matter changes. . Lumbar Spine CT 03/28/18 00:00 CONCLUSION: 1. Transitional lumbosacral anatomy. 2. Multilevel lumbar spine degenerative changes as described. 3. Degenerative anterolisthesis and severe spinal stenosis and moderate to severe bilateral foraminal stenosis at L3/L4. 4. Moderate spinal stenosis and [id number] right, mild left foraminal stenosis at L4/L5. 5. Mild to moderate right and mild left foraminal stenosis at L2/L3. 6. No fracture or acute appearing malalignment. Lumbar Spine MRI 03/29/18 00:00 CONCLUSION: 1. Transitional lumbosacral anatomy. 2. The MRI shows a spinal stenosis is actually severe L4/L5 and moderate to severe at L3/L4 which is the opposite of what was suspected on the comparison CT. The MRI shows mild to moderate degrees of foraminal stenosis at both of these levels, less severe than what was suspected on the CT. Please see above. 3. Grade 1 anterolisthesis at L3/L4 appears degenerative. No fracture or acute appearing malalignment. Discharge Plan Discharge Disposition Patient Disposition: 02 Transfer To [facility] [place] Discharge Condition Condition: Stable Discharge Details Anticipated Discharge Date: 03/30/18 Discharge Comment: d/c to SNF/[facility] Diagnosis: Sepsis Physicians Team ED Provider: Marcos Gilbert Primary Care Provider: NON STAFF,PROVIDER Attending Provider: Giovanny Jennings Other Providers: Amy Salazar ; Polo William Status ED Status: Left Department Discharge Information Discharge Date/Time: 03/28/18 03:39
[2018-03-27] MEDS ORDERED: Bisacodyl 10 MG Supp RECTAL PRN (23:45)
[2018-03-27] MEDS ORDERED: Acetaminophen 325 MG Tablet PO PRN (23:45)
[2018-03-28] MEDS ORDERED: Chlorhexidine Gluconate 2% 1 Pack (2 Cloths) TOPICAL PRN (04:00)
[2018-03-28] MEDS: Piperacil/Tazo 3.375 GM Premix 50 ML IV.SIG SCH ×4 (04:35→23:03)
[2018-03-28] MEDS: Sod Chloride 0.9% Inj 1,000 ML IV.CONT SCH ×2 (04:35→16:32)
[2018-03-28] MEDS: Heparin - SQ 10,000 UNITS/ML Vial SQ SCH ×3 (04:35→23:03)
[2018-03-28] MEDS: Chlorhexidine Gluconate 2% 1 Pack (2 Cloths) TOPICAL SCH (04:36)
[2018-03-28 06:11] LABS: Baso % (Auto) 0.3 % (0.0-2.0); Eos # (Auto) 0.1 th/mm3 (0.0-0.4); Eos % (Auto) 0.6 % (0.0-4.0); Hematocrit 28.8 % (35.0-46.0); Hemoglobin 9.2 gm/dL (11.6-15.3); Lymph # (Auto) 1.2 th/mm3 (1.0-4.8); Lymph % (Auto) 10.8 % (9.0-44.0); Mean Corpuscular HGB Conc 31.8 % (32.0-36.0); Mean Corpuscular Hemoglobin 27.5 pg (27.0-34.0); Mean Corpuscular Volume 86.5 fL (80.0-100.0); Mean Platelet Volume 7.5 fL (7.0-11.0); Mono # (Auto) 0.8 th/mm3 (0.0-0.9); Neut # (Auto) 9.2 th/mm3 (1.8-7.7); Neut % (Auto) 81.3 % (16.0-70.0); Platelet Count 339 th/mm3 (150-450); Red Blood Count 3.33 mil/mm3 (4.00-5.30); Red Cell Distribution Width 15.2 % (11.6-17.2); White Blood Count 11.3 th/mm3 (4.0-11.0)
[2018-03-28 06:32] LABS: Albumin 2.7 g/dL (3.4-5.0); Anion Gap 12 meq/L (5-15); Aspartate Aminotransferase 19 U/L (15-37); Blood Urea Nitrogen 19 mg/dL (7-18); Calcium 8.2 mg/dL (8.5-10.1); Carbon Dioxide 22.2 meq/L (21.0-32.0); Chloride 108 meq/L (98-107); Glomerular Filtration Rate 59 mL/min (>89); Glucose,Random 97 mg/dL (74-106); Potassium 3.7 meq/L (3.5-5.1); Sodium 142 meq/L (136-145)
[2018-03-28 06:38] LABS: Alanine Aminotransferase 17 U/L (10-53); Alkaline Phosphatase 61 U/L (45-117); Total Protein 6.6 g/dL (6.4-8.2)
--- NOTE | 2018-03-28 09:24 | P.HP ---
History of Present Illness Primary Care Physician: PROVIDER NON STAFF History of Present Illness: 82-year-old female with a history of glaucoma and hypertension presents to the ER with sudden onset of bilateral lower extremity weakness. She states she felt fine otherwise. Upon awakening early on the morning of 03/27/2018 she noted that she was unable to walk. Both legs were very painful, daughter reports that massage help to alleviate some of this pain. Expanded ER workup included d -dimer which was elevated, pulmonary angiogram was negative for pulmonary embolism. CT of the brain showed no evidence of stroke. Blood work only showed elevated white cells without evidence of true sepsis, but for lack of a better diagnosis she was started on empiric coverage for sepsis. Her only complaint remains weakness and pain in her legs, she has had no fevers, no nausea vomiting, no cough and states that she feels perfectly normal from the waist up. Inpatient Certification: I certify that the inpatient services were ordered in accordance with Medicare regulations governing the order. This includes certification that hospital inpatient services are reasonable and necessary and in the case of services not specified as inpatient-only under 42 CFR 419.22(n), that they are appropriately provided as inpatient services in accordance to with the 2-midnight benchmark under 43 CFR 412.3(e) Estimated Total Length of Stay (Days): 3 Plans for Post Hospital Care: Not yet determined Review of Systems Constitutional: Reports weakness, Denies anorexia, Denies body ache(s), Denies chills, Denies daytime sleepiness, Denies excessive sweating, Denies fatigue, Denies fever(s), Denies headache(s), Denies increased appetite, Denies lack of energy, Denies malaise, Denies night sweats, Denies weight gain, Denies weight loss, Denies other Eyes: Denies blind spots, Denies blurry vision, Denies bulging eyes, Denies change in vision, Denies double vision, Denies discharge, Denies dry eyes, Denies floaters, Denies irritation, Denies itchy eyes, Denies loss of vision, Denies pain, Denies requires corrective lenses, Denies sensitivity to light, Denies other Ears, Nose, Mouth, and Throat: Denies abnormal hearing, Denies bleeding gums, Denies bad breath, Denies change in voice, Denies dental pain, Denies difficulty swallowing, Denies dizziness, Denies dry mouth, Denies ear discharge , Denies ear pain, Denies facial pain, Denies headache(s), Denies hearing loss, Denies hoarseness, Denies lip swelling, Denies nosebleed, Denies mouth lesions, Denies mouth pain, Denies nasal congestion, Denies nasal discharge, Denies nasal obstruction, Denies nasal trauma, Denies neck lump, Denies neck pain, Denies nose pain, Denies pain with swallowing, Denies poor balance, Denies post nasal drip, Denies ringing in the ears, Denies sinus pain, Denies sinus pressure , Denies sore throat, Denies throat swelling, Denies tongue swelling, Denies other Cardiovascular: Denies chest pain, Denies chest pain at rest, Denies chest pain with activity, Denies excessive sweating, Denies fainting, Denies fast heart rate, Denies foot swelling, Denies generalized swelling, Denies irregular heart rhythm, Denies leg pain with activity, Denies leg sores, Denies leg swelling, Denies lightheadedness, Denies radiating jaw, neck or arm pain, Denies rapid, pounding, or irregular heartbeat, Denies shortness of breath, Denies shortness of breath with activity, Denies shortness of breath when lying down, Denies shortness of breath causing sudden awakening, Denies slow heart rate, Denies other Respiratory: Denies change in phlegm color, Denies chest congestion, Denies cough, Denies coughing up blood, Denies excessive phlegm production, Denies pain on inspiration, Denies pain with cough, Denies shortness of breath, Denies shortness of breath with activity, Denies snoring, Denies stridor, Denies wheezing, Denies other Gastrointestinal: Denies abdominal pain, Denies belching, Denies black, tarry stools, Denies bloating, Denies bright, red blood in stools, Denies change in bowel habits, Denies constant urge to pass stool, Denies change in stools, Denies coffee ground vomit, Denies constipation, Denies cramping, Denies difficulty swallowing, Denies excessive passing of gas, Denies feeling full early, Denies heartburn, Denies incontinent of stools, Denies loose stools, Denies nausea, Denies pain with swallowing, Denies vomiting, Denies vomiting blood, Denies other Musculoskeletal: Reports abnormal walking, Reports muscle weakness, Reports radiating pain into limb, Denies back pain, Denies joint pain, Denies joint swelling, Denies neck pain, Denies stiffness, Denies tingling Neurologic: Reports abnormal walking, Reports radiating pain, Reports weakness, Denies abnormal movements, Denies abnormal speech, Denies behavioral changes, Denies burning sensations, Denies confusion, Denies dizziness, Denies fainting, Denies frequent falls, Denies lack of coordination, Denies loss of vision, Denies memory loss, Denies numbness, Denies other visual disturbances, Denies convulsions, Denies tingling, Denies tingling/numbness/burning sensations Psychiatric: Denies abnormal sleep pattern, Denies anxiety, Denies behavioral changes, Denies change in appetite, Denies change in sex drive, Denies confusion , Denies depression, Denies difficulty concentrating, Denies hearing things others do not hear, Denies hopelessness, Denies irritability, Denies lack of enjoyment, Denies memory loss, Denies mood swings, Denies panic attacks, Denies paranoia, Denies seeing things others do not see, Denies sensing things others do not sense, Denies tactile hallucinations, Denies thoughts of hurting/killing others, Denies thoughts of hurting/killing yourself, Denies other Endocrine: Denies cold intolerance, Denies excessive sweating, Denies flushing, Denies heat intolerance, Denies increased hunger, Denies increased thirst, Denies increased urination, Denies rapid, pounding, or irregular heartbeat, Denies other Hematologic/Lymphatic: Denies easy bleeding, Denies easy bruising, Denies enlarged lymph nodes, Denies other Allergic/Immunologic: Denies GI upset with certain foods, Denies hives, Denies itchy eyes, Denies lip swelling, Denies seasonal runny nose, Denies throat swelling, Denies tongue swelling, Denies wheezing, Denies other PMFSH - History History Provided By: Family Member - Medical History Medical History: Medical History (Last Updated 03/27/18 @ 16:50 by Estephanie Bowen RN) Glaucoma Hypertension Sleep disorder - Surgical History Surgical History: Surgical History (Last Updated 03/27/18 @ 16:50 by Estephanie Bowen RN) History of eye removal History of knee replacement - Tobacco History Second Hand Smoke Exposure: No Tobacco Use In Past 30 Days: No Smoking Status: Never smoker - Alcohol History How Often Do You Have a Drink Containing Alcohol: Never - Substance Use History Substance History: No History of Abuse - Travel History Recent Travel in the [place] Within the Last 8 Weeks: No Recent Travel Out of the Country Within the Last 8 Weeks: No - Immunization History Tetanus Immunization: Unsure Hx Influenza Vaccine This Season: No Medications and Allergies Active Medications: Active Medications Acetaminophen (Tylenol) 650 mg PO Q4H PRN PRN Reason: Temp > 100.4/pain Al Hydroxide/Mg Hydroxide (Milk Of Magnesia Liq) 30 ml PO Q12H PRN PRN Reason: Mild Constipation Bisacodyl (Dulcolax Supp) 10 mg RECTAL DAILY PRN PRN Reason: SEVERE CONSITIPATION Chlorhexidine Gluconate (Chlorhexidine 2% Cloth) 3 pack TOPICAL DAILY@0400 [facility] Stop: 04/02/18 03:59 Last Admin: 03/28/18 04:36 Dose: 3 pack Chlorhexidine Gluconate (Chlorhexidine 2% Cloth) 3 pack TOPICAL DAILY@0400 PRN PRN Reason: Extra cloth needed Stop: 04/02/18 03:59 Heparin Sodium (Porcine) (Heparin Inj) 5,000 units SQ Q8H [facility] Last Admin: 03/28/18 04:35 Dose: Not Given Sodium Chloride (Ns Inj) 1,000 mls @ 70 mls/hr IV.CONT .[id number] [facility] Last Admin: 03/28/18 04:35 Dose: 70 mls/hr Piperacillin/Tazobactam/Dextrose (Zosyn 3.375 Gm Premix) 50 mls @ 100 mls/hr IV.SIG Q6H [facility] Last Infusion: 03/28/18 07:59 Dose: Infused Lactulose (Lactulose Liq) 30 ml PO DAILY PRN PRN Reason: SEVERE CONSITIPATION Ondansetron HCl (Zofran Inj) 4 mg IV.PUSH Q6H PRN PRN Reason: NAUSEA OR VOMITING Sennosides (Senokot) 17.2 mg PO Q12H PRN PRN Reason: Moderate Constipation Sodium Chloride (Ns Flush) 2 ml IV.FLUSH PRN PRN PRN Reason: FLUSH AFTER USING IV ACCESS Allergies Allergy/AdvReac Type Severity Reaction Status Date / Time sulfamethoxazole Allergy Intermediate Generalized Verified 03/27/18 20:22 Rash trimethoprim Allergy Intermediate Diarrhea Verified 03/27/18 20:22 Home Medications Medication Instructions Recorded Confirmed Type alprazolam 0.25 mg PO HS 03/27/18 03/27/18 History diclofenac sodium 75 mg PO BID PRN 03/27/18 03/27/18 History metoprolol tartrate 100 mg PO BID 03/27/18 03/27/18 History Exam Vital signs: Vital Signs 03/27/18 16:29 03/27/18 18:46 03/27/18 20:12 Temperature 99.5 F 101.6 F H Pulse Rate 120 H 109 H Respiratory Rate 16 16 Blood Pressure 159/73 H 167/81 H Pulse Oximetry 96 98 03/27/18 23:06 03/28/18 00:29 03/28/18 03:26 Temperature 98.4 F Pulse Rate 102 H 89 93 H Respiratory Rate 15 15 15 Blood Pressure 142/71 H 156/77 H 172/76 H Pulse Oximetry 97 03/28/18 04:20 Temperature 98 F Pulse Rate 88 Respiratory Rate 20 Blood Pressure 143/65 H Pulse Oximetry 100 Intake & Output 03/27/18 03/28/18 03/28/18 18:59 06:59 18:59 Intake Total 50 / 50 Balance 50 / 50 Weight 68 kg 48.5 kg Intake: IV 50 / 50 Zosyn 3.375 GM Premix 50 ML @ 50 / 50 100 mls/hr IV.SIG Q6H [facility] Rx#: [id number] Other: # Voids 3 Narrative: GENERAL: AAOx3, no acute distress, adequate nutrition SKIN: Warm and dry, no rashes. HEAD: Atraumatic. Normocephalic. EYES: Pupils equal, round, reactive to light. No scleral icterus. No injection or drainage. ENT: No nasal bleeding or discharge. Moist mucous membranes. Nonerythematous oropharynx. NECK: Trachea midline. No JVD. Thyroid size within normal limits. CARDIOVASCULAR: Regular rate and rhythm. No murmur, no gallops, no rubs. RESPIRATORY: Clear and equal to auscultation bilaterally. No crackles, no wheezes. No accessory muscle use. GASTROINTESTINAL: Abdomen soft, non-tender, nondistended, normal active bowel sounds. Hepatic and splenic margins not palpable. MUSCULOSKELETAL: Extremities without clubbing or cyanosis. No obvious deformities. No edema. Negative Homans sign. No knots or cords. NEUROLOGICAL: Awake and alert. No obvious cranial nerve deficits. Normal speech. Bilateral lower extremities show 4 out of 5 strength, sensation is intact, strength is equal bilaterally.. Extremities are normal in strength and coordination. PSYCHIATRIC: Appropriate mood and affect; insight and judgment normal. Results - Labs CBC & Chem 7: 03/28/18 05:05 03/28/18 05:05 Labs: Laboratory Results - last 24 hr 03/27/18 03/27/18 03/27/18 18:18 18:18 18:30 CBC w Diff Slide review pending WBC 13.5 H RBC 3.57 L Hgb 10.1 L Hct 29.6 L MCV 83.0 MCH 28.4 MCHC 34.1 RDW 14.6 Plt Count 404 MPV 7.7 Neut % (Auto) 85.8 H Lymph % (Auto) 8.2 L [place] % (Auto) 4.6 Eos % (Auto) 0.1 Baso % (Auto) 1.3 Neut # (Auto) 11.6 H Lymph # (Auto) 1.1 [place] # (Auto) 0.6 Eos # (Auto) 0.0 Baso # (Auto) 0.2 WBC Differential . Diff Scan Auto diff confirmed Differential Comment . Platelet Estimate Normal Platelet Morphology Normal RBC Morphology Normal PT INR APTT D-Dimer Quant (PE/DVT) Sodium 137 Potassium 4.6 Chloride 105 Carbon Dioxide 23.6 Anion Gap 8 BUN 26 H Creatinine 1.10 H Estimated GFR 48 L Random Glucose 123 H Lactic Acid Calcium 8.2 L Total Bilirubin 0.3 AST 31 ALT 23 Alkaline Phosphatase 65 Ammonia Total Creatine Kinase 87 Troponin I 0.06 H Total Protein 7.2 Albumin 2.8 L TSH 0.669 Urine Color Yellow Urine Clarity Clear Urine pH 5.5 Ur Specific [place] 1.025 Urine Protein Trace Urine Glucose (UA) Negative Urine Ketones Negative Urine Occult Blood Trace Urine Nitrate Negative Urine Bilirubin Negative Urine Urobilinogen 0.2 Ur Leukocyte Esterase Negative Urine RBC 0-3 Urine WBC 0-5 Ur Squamous Epith Cells 6-10 H Urine Bacteria Occasional H Micro UA Comment Culture not ind Urine Culture Comments Culture not ind 03/27/18 03/27/18 03/27/18 18:45 19:15 19:20 CBC w Diff WBC RBC Hgb Hct MCV MCH MCHC RDW Plt Count MPV Neut % (Auto) Lymph % (Auto) [place] % (Auto) Eos % (Auto) Baso % (Auto) Neut # (Auto) Lymph # (Auto) [place] # (Auto) Eos # (Auto) Baso # (Auto) WBC Differential Diff Scan Differential Comment Platelet Estimate Platelet Morphology RBC Morphology PT 10.5 INR 1.0 APTT 25.0 D-Dimer Quant (PE/DVT) 1.14 H Sodium Potassium Chloride Carbon Dioxide Anion Gap BUN Creatinine Estimated GFR Random Glucose Lactic Acid 1.8 Calcium Total Bilirubin AST ALT Alkaline Phosphatase Ammonia Less than 10 L Total Creatine Kinase Troponin I Total Protein Albumin TSH Urine Color Urine Clarity Urine pH Ur Specific [place] Urine Protein Urine Glucose (UA) Urine Ketones Urine Occult Blood Urine Nitrate Urine Bilirubin Urine Urobilinogen Ur Leukocyte Esterase Urine RBC Urine WBC Ur Squamous Epith Cells Urine Bacteria Micro UA Comment Urine Culture Comments 03/27/18 03/28/18 03/28/18 20:50 05:05 05:05 CBC w Diff WBC 11.3 H RBC 3.33 L Hgb 9.2 L Hct 28.8 L MCV 86.5 D MCH 27.5 MCHC 31.8 L RDW 15.2 Plt Count 339 MPV 7.5 Neut % (Auto) 81.3 H Lymph % (Auto) 10.8 [place] % (Auto) 7.0 Eos % (Auto) 0.6 Baso % (Auto) 0.3 Neut # (Auto) 9.2 H Lymph # (Auto) 1.2 [place] # (Auto) 0.8 Eos # (Auto) 0.1 Baso # (Auto) 0.0 WBC Differential . Diff Scan Differential Comment Auto diff final Platelet Estimate Platelet Morphology RBC Morphology PT INR APTT D-Dimer Quant (PE/DVT) Sodium 142 Potassium 3.7 D Chloride 108 H Carbon Dioxide 22.2 Anion Gap 12 BUN 19 H Creatinine 0.91 Estimated GFR 59 L Random Glucose 97 Lactic Acid Calcium 8.2 L Total Bilirubin 0.4 AST 19 ALT 17 Alkaline Phosphatase 61 Ammonia Total Creatine Kinase Troponin I 0.11 H Total Protein 6.6 D Albumin 2.7 L TSH Urine Color Urine Clarity Urine pH Ur Specific [place] Urine Protein Urine Glucose (UA) Urine Ketones Urine Occult Blood Urine Nitrate Urine Bilirubin Urine Urobilinogen Ur Leukocyte Esterase Urine RBC Urine WBC Ur Squamous Epith Cells Urine Bacteria Micro UA Comment Urine Culture Comments - Imaging Impressions Chest X-Ray 03/27/18 17:27 CONCLUSION: Mild atelectasis. No perceptible pneumonia. Chest CTA 03/27/18 19:55 CONCLUSION: 1. No pulmonary embolus. 2. Fibroemphysematous changes. 3. Chronic left apex parenchymal scarring and subcentimeter nodules not significantly changed. Head CT 03/27/18 19:55 CONCLUSION: 1. No acute intracranial abnormality. 2. Chronic white matter changes. . Caprini VTE Risk Assessment Caprini VTE Risk Assessment: Moderate/High Risk (score >= 2) Caprini Risk Assessment Model: Point Value = 1 Point Value = 2 Point Value = 3 Point Value = 5 Age 41-60 Minor surgery BMI > 25 kg/m2 Swollen legs Varicose veins or History of unexplained or recurrent spontaneous Oral contraceptives or hormone replacement Sepsis (< 1 month) Serious lung disease, including pneumonia (< 1 month) Abnormal pulmonary function Acute myocardial infarction Congestive heart failure (< 1 month) History of inflammatory bowel disease Medical patient at bed rest Age 61-74 Arthroscopic surgery Major open surgery (> 45 min) Laparoscopic surgery (> 45 min) Malignancy Confined to bed (> 72 hours) Immobilizing plaster cast Central venous access Age >= 75 History of VTE Family history of VTE Factor V Leiden Prothrombin [id number] Lupus anticoagulant Anticardiolipin antibodies Elevated serum homocysteine Heparin-induced thrombocytopenia Other congenital or acquired thrombophilia Stroke (< 1 month) Elective arthroplasty Hip, pelvis, or leg fracture Acute spinal cord injury (< 1 month) Prophylaxis Regimen: Total Risk Factor Score Risk Level Prophylaxis Regimen 0-1 Low Early ambulation 2 Moderate Order ONE of the following: *Sequential Compression Device (SCD) *Heparin 5000 units SQ BID 3-4 Higher Order ONE of the following medications: *Heparin 5000 units SQ TID *Enoxaparin/Lovenox 40 mg SQ daily (WT < 150 kg, CrCl > 30 mL/min) *Enoxaparin/Lovenox 30 mg SQ daily (WT < 150 kg, CrCl > 10-29 mL/min) *Enoxaparin/Lovenox 30 mg SQ BID (WT < 150 kg, CrCl > 30 mL/min) AND/OR *Sequential Compression Device (SCD) 5 or more Highest Order ONE of the following medications: *Heparin 5000 units SQ TID (Preferred with Epidurals) *Enoxaparin/Lovenox 40 mg SQ daily (WT < 150 kg, CrCl > 30 mL/min) *Enoxaparin/Lovenox 30 mg SQ daily (WT < 150 kg, CrCl > 10-29 mL/min) *Enoxaparin/Lovenox 30 mg SQ BID (WT < 150 kg, CrCl > 30 mL/min) AND *Sequential Compression Device (SCD) Assessment and Plan - Plan Bilateral lower extremity weakness Sudden onset, occurred [place] [employer] upon awakening Patient denies a history of spinal stenosis, she denies any recent falls or injuries We will check CT of lumbar spine to rule out cord compression as the most common cause in this scenario If CT of the L-spine is normal, will get MRI of the brain to further investigate for atypical stroke Sepsis risk Patient has been afebrile, lactic acid was within normal limits, vital signs are within normal limits She has unexplained leukocytosis, expand workup in the ER showed only this She should continue coverage with IV antibiotics until we have a better explanation for her lower extremity weakness Blood cultures are pending Stable for transfer to [facility] h/o hypertension Continue home meds h/o glaucoma Continue home meds DVT Prophylaxis Heparin
--- NOTE | 2018-03-28 14:51 | P.CONCA ---
<Idalia Dickson N - Last Filed: 03/28/18 15:31> History of Present Illness Service: Cardiology Consult date: 03/28/18 Requesting Physician: Sary Fernando Reason for Consult: Elevated troponin Primary Care Provider: PROVIDER NON STAFF Family Provider: Yusef Delcid Chief Complaint: Bilateral lower extremity weakness History of Present Illness: This is a very pleasant 82-year-old female with a history of glaucoma and hypertension who presented to the emergency department with sudden onset of bilateral lower extremity weakness and pain on the morning of March 27, 2018. Daughter is at the bedside, states that massage did help with the pain. Patient denied any shortness of breath, dizziness, chest pain, pressure or palpitations during this episode. Her only complaint was the pain and the weakness in her lower extremities. She currently denies any chest pain, pressure, palpitations, dizziness, shortness of breath or edema. After reviewing her lab work patient has an elevated white blood cell count and is being evaluated for possible sepsis. Troponin levels were slightly elevated without trending up. 12-lead EKG shows sinus tachycardia with no evidence of acute ischemia. Review of Systems General: Patient denies fevers, chills, and recent travel. HEENT: Patient denies headache, sore throat, difficulty swallowing. Cardiovascular: Patient denies chest pain, dizziness. Denies sensation of heart beating rapidly or irregularly. No syncope. Respiratory: Denies shortness of breath or inspirational chest discomfort. Denies coughing wheezing or hemoptysis. GI: Patient denies nausea, vomiting, diarrhea, abdominal pain, bloody stools. Musculoskeletal: Patient denies joint pain or edema. Denies calf pain or edema. Complains of bilateral lower leg weakness and pain. Neurovascular: Patient denies numbness, tingling, weakness in extremities. Denies headache. Endocrine: Denies polyuria and polydipsia. Hematologic: Denies easy bruising. Skin: Denies rash or itching. PMFSH - History History Provided By: Family Member - Medical History Medical History: Medical History (Last Reviewed 03/28/18 @ 11:22 by Carine Gomez) Glaucoma Hypertension Sleep disorder - Surgical History Surgical History: Surgical History (Last Reviewed 03/28/18 @ 11:22 by Carine Gomez) History of eye removal History of knee replacement - Tobacco History Second Hand Smoke Exposure: No Tobacco Use In Past 30 Days: No Smoking Status: Never smoker - Alcohol History How Often Do You Have a Drink Containing Alcohol: Never - Substance Use History Substance History: No History of Abuse - Travel History Recent Travel in the [place] Within the Last 8 Weeks: No Recent Travel Out of the Country Within the Last 8 Weeks: No - Immunization History Tetanus Immunization: Unsure Hx Influenza Vaccine This Season: No Medications and Allergies Allergies Allergy/AdvReac Type Severity Reaction Status Date / Time sulfamethoxazole Allergy Intermediate Generalized Verified 03/27/18 20:22 Rash trimethoprim Allergy Intermediate Diarrhea Verified 03/27/18 20:22 Home Medications Medication Instructions Recorded Confirmed Type alprazolam 0.25 mg PO HS 03/27/18 03/27/18 History diclofenac sodium 75 mg PO BID PRN 03/27/18 03/27/18 History metoprolol tartrate 100 mg PO BID 03/27/18 03/27/18 History Active Medications: Active Medications Acetaminophen (Tylenol) 650 mg PO Q4H PRN PRN Reason: Temp > 100.4/pain Al Hydroxide/Mg Hydroxide (Milk Of Magnesia Liq) 30 ml PO Q12H PRN PRN Reason: Mild Constipation Bisacodyl (Dulcolax Supp) 10 mg RECTAL DAILY PRN PRN Reason: SEVERE CONSITIPATION Chlorhexidine Gluconate (Chlorhexidine 2% Cloth) 3 pack TOPICAL DAILY@0400 [facility] Stop: 04/02/18 03:59 Last Admin: 03/28/18 04:36 Dose: 3 pack Chlorhexidine Gluconate (Chlorhexidine 2% Cloth) 3 pack TOPICAL DAILY@0400 PRN PRN Reason: Extra cloth needed Stop: 04/02/18 03:59 Heparin Sodium (Porcine) (Heparin Inj) 5,000 units SQ Q8H [facility] Last Admin: 03/28/18 04:35 Dose: Not Given Sodium Chloride (Ns Inj) 1,000 mls @ 70 mls/hr IV.CONT .[id number] [facility] Last Admin: 03/28/18 04:35 Dose: 70 mls/hr Piperacillin/Tazobactam/Dextrose (Zosyn 3.375 Gm Premix) 50 mls @ 100 mls/hr IV.SIG Q6H [facility] Last Infusion: 03/28/18 07:59 Dose: Infused Lactulose (Lactulose Liq) 30 ml PO DAILY PRN PRN Reason: SEVERE CONSITIPATION Ondansetron HCl (Zofran Inj) 4 mg IV.PUSH Q6H PRN PRN Reason: NAUSEA OR VOMITING Sennosides (Senokot) 17.2 mg PO Q12H PRN PRN Reason: Moderate Constipation Sodium Chloride (Ns Flush) 2 ml IV.FLUSH PRN PRN PRN Reason: FLUSH AFTER USING IV ACCESS Exam Vital signs: Vital Signs 03/27/18 16:29 03/27/18 18:46 03/27/18 20:12 Temperature 99.5 F 101.6 F H Pulse Rate 120 H 109 H Respiratory Rate 16 16 Blood Pressure 159/73 H 167/81 H Pulse Oximetry 96 98 03/27/18 23:06 03/28/18 00:29 03/28/18 03:26 Temperature 98.4 F Pulse Rate 102 H 89 93 H Respiratory Rate 15 15 15 Blood Pressure 142/71 H 156/77 H 172/76 H Pulse Oximetry 97 03/28/18 04:20 03/28/18 08:00 03/28/18 09:00 Temperature 98 F 98.7 F Pulse Rate 88 89 85 Respiratory Rate 20 26 H Blood Pressure 143/65 H 161/77 H Pulse Oximetry 100 100 Intake & Output 03/27/18 03/28/18 03/28/18 18:59 06:59 18:59 Intake Total 50 / 50 Balance 50 / 50 Weight 68 kg 48.5 kg Intake: IV 50 / 50 Zosyn 3.375 GM Premix 50 ML @ 50 / 50 100 mls/hr IV.SIG Q6H [facility] Rx#: [id number] Other: # Voids 3 Narrative: GENERAL: This is a well-nourished, well-developed patient, in no apparent distress. Patient speaks in clear complete sentences. Patient is pleasant. HEENT: Head is atraumatic and normocephalic. Neck is supple without lymphadenopathy and trachea is midline. No JVD or carotid bruits. CARDIOVASCULAR: Sinus tachycardia without murmurs, gallops, or rubs. RESPIRATORY: Clear to auscultation. Breath sounds equal bilaterally. No wheezes , rales, or rhonchi. Chest wall is nontender. No use of accessory muscles. GASTROINTESTINAL: Abdomen is nontender, nondistended. Abdomen soft. No obvious pulsatile mass or bruit. No CVA tenderness. Strong femoral pulses bilaterally. Normal bowel sounds in all quadrants. MUSCULOSKELETAL: Patient is moving upper and lower extremities freely. No calf tenderness or edema, no Homans sign. Strong pulses in upper and lower extremities. Mild weakness noted in the lower extremities and patient grimaces with movement. NEUROLOGICAL: Patient is alert and oriented. Cranial nerves 2-12 are grossly intact. No focal deficits and speech is clear. SKIN: No rash and turgor is normal. Results 03/28/18 05:05 03/28/18 05:05 Cardiac Enzymes 03/27/18 03/27/18 03/28/18 Range/Units 18:18 20:50 05:05 AST 31 19 (15-37) U/L Troponin I 0.06 H 0.11 H (0.02-0.05) ng/mL Coagulation 03/27/18 Range/Units 19:20 PT 10.5 (9.8-11.6) sec APTT 25.0 (24.3-30.1) sec CBC 03/27/18 03/28/18 Range/Units 18:18 05:05 WBC 13.5 H 11.3 H (4.0-11.0) th/mm3 RBC 3.57 L 3.33 L (4.00-5.30) mil/mm3 Hgb 10.1 L 9.2 L (11.6-15.3) gm/dL Hct 29.6 L 28.8 L (35.0-46.0) % Plt Count 404 339 (150-450) th/mm3 Neut # (Auto) 11.6 H 9.2 H (1.8-7.7) th/mm3 Lymph # (Auto) 1.1 1.2 (1.0-4.8) th/mm3 Patrick # (Auto) 0.6 0.8 (0.0-0.9) th/mm3 Eos # (Auto) 0.0 0.1 (0.0-0.4) th/mm3 Baso # (Auto) 0.2 0.0 (0.0-0.2) th/mm3 Comprehensive Metabolic Panel 03/27/18 03/28/18 Range/Units 18:18 05:05 Sodium 137 142 (136-145) meq/L Potassium 4.6 3.7 D (3.5-5.1) meq/L Chloride 105 108 H (98-107) meq/L Carbon Dioxide 23.6 22.2 (21.0-32.0) meq/L BUN 26 H 19 H (7-18) mg/dL Creatinine 1.10 H 0.91 (0.50-1.00) mg/dL Calcium 8.2 L 8.2 L (8.5-10.1) mg/dL AST 31 19 (15-37) U/L ALT 23 17 (10-53) U/L Alkaline Phosphatase 65 61 (45-117) U/L Total Protein 7.2 6.6 D (6.4-8.2) g/dL Albumin 2.8 L 2.7 L (3.4-5.0) g/dL Intake and Output 03/27/18 03/28/18 03/28/18 22:59 06:59 14:59 Intake Total 50 / 50 Balance 50 / 50 Intake: IV 50 / 50 Zosyn 3.375 GM Premix 50 ML @ 50 / 50 100 mls/hr IV.SIG Q6H [facility] Rx#: [id number] Other: # Voids 3 Weight 68 kg 48.5 kg EKG interpretations - Dysrhythmias Sinus rhythms and dysrhythmias: sinus tachycardia Assessment and Plan - Assessment (1) Weakness Code(s): R53.1 - Weakness Status: Acute (2) Sepsis Code(s): A41.9 - Sepsis, unspecified organism Status: Acute (3) Hypertension Code(s): I10 - Essential (primary) hypertension Status: Chronic - Plan Patient has no chest pain, pressure or discomfort. Cardiac enzymes are not trending at this time. Continue to monitor patient on telemetry. Patient currently being evaluated for possible sepsis. Will continue to follow patient from a cardiac standpoint and possibly schedule a ALEXA in the future. The patient was seen and evaluated by Dr. Salazar who participated in care, management and decision-making. <Amy Salazar - Last Filed: 03/28/18 16:02> History of Present Illness Primary Care Provider: PROVIDER NON STAFF Family Provider: Yusef Delcid [facility] - Medical History Medical History: Medical History (Last Reviewed 03/28/18 @ 11:22 by Carine Gomez) Glaucoma Hypertension Sleep disorder - Surgical History Surgical History: Surgical History (Last Reviewed 03/28/18 @ 11:22 by Carine Gomez) History of eye removal History of knee replacement Medications and Allergies Active Medications: Active Medications Acetaminophen (Tylenol) 650 mg PO Q4H PRN PRN Reason: Temp > 100.4/pain Al Hydroxide/Mg Hydroxide (Milk Of Magnesia Liq) 30 ml PO Q12H PRN PRN Reason: Mild Constipation Bisacodyl (Dulcolax Supp) 10 mg RECTAL DAILY PRN PRN Reason: SEVERE CONSITIPATION Chlorhexidine Gluconate (Chlorhexidine 2% Cloth) 3 pack TOPICAL DAILY@0400 [facility] Stop: 04/02/18 03:59 Last Admin: 03/28/18 04:36 Dose: 3 pack Chlorhexidine Gluconate (Chlorhexidine 2% Cloth) 3 pack TOPICAL DAILY@0400 PRN PRN Reason: Extra cloth needed Stop: 04/02/18 03:59 Heparin Sodium (Porcine) (Heparin Inj) 5,000 units SQ Q8H [facility] Last Admin: 03/28/18 04:35 Dose: Not Given Sodium Chloride (Ns Inj) 1,000 mls @ 70 mls/hr IV.CONT .[id number] [facility] Last Admin: 03/28/18 04:35 Dose: 70 mls/hr Piperacillin/Tazobactam/Dextrose (Zosyn 3.375 Gm Premix) 50 mls @ 100 mls/hr IV.SIG Q6H [facility] Last Infusion: 03/28/18 07:59 Dose: Infused Lactulose (Lactulose Liq) 30 ml PO DAILY PRN PRN Reason: SEVERE CONSITIPATION Ondansetron HCl (Zofran Inj) 4 mg IV.PUSH Q6H PRN PRN Reason: NAUSEA OR VOMITING Sennosides (Senokot) 17.2 mg PO Q12H PRN PRN Reason: Moderate Constipation Sodium Chloride (Ns Flush) 2 ml IV.FLUSH PRN PRN PRN Reason: FLUSH AFTER USING IV ACCESS Exam Vital signs: Vital Signs 03/27/18 16:29 03/27/18 18:46 03/27/18 20:12 Temperature 99.5 F 101.6 F H Pulse Rate 120 H 109 H Respiratory Rate 16 16 Blood Pressure 159/73 H 167/81 H Pulse Oximetry 96 98 03/27/18 23:06 03/28/18 00:29 03/28/18 03:26 Temperature 98.4 F Pulse Rate 102 H 89 93 H Respiratory Rate 15 15 15 Blood Pressure 142/71 H 156/77 H 172/76 H Pulse Oximetry 97 03/28/18 04:20 03/28/18 08:00 03/28/18 09:00 Temperature 98 F 98.7 F Pulse Rate 88 89 85 Respiratory Rate 20 26 H Blood Pressure 143/65 H 161/77 H Pulse Oximetry 100 100 03/28/18 12:00 Temperature 98.3 F Pulse Rate 93 H Respiratory Rate 27 H Blood Pressure 155/70 H Pulse Oximetry 99 Intake & Output 03/27/18 03/28/18 03/28/18 18:59 06:59 18:59 Intake Total 50 / 50 Balance 50 / 50 Weight 149 lb 14.629 oz 106 lb 14.787 oz Intake: IV 50 / 50 Zosyn 3.375 GM Premix 50 ML @ 50 / 50 100 mls/hr IV.SIG Q6H [facility] Rx#: [id number] Other: # Voids 3 Results 03/28/18 05:05 03/28/18 05:05 Cardiac Enzymes 03/27/18 03/27/18 03/28/18 Range/Units 18:18 20:50 05:05 AST 31 19 (15-37) U/L Troponin I 0.06 H 0.11 H (0.02-0.05) ng/mL Coagulation 03/27/18 Range/Units 19:20 PT 10.5 (9.8-11.6) sec APTT 25.0 (24.3-30.1) sec CBC 03/27/18 03/28/18 Range/Units 18:18 05:05 WBC 13.5 H 11.3 H (4.0-11.0) th/mm3 RBC 3.57 L 3.33 L (4.00-5.30) mil/mm3 Hgb 10.1 L 9.2 L (11.6-15.3) gm/dL Hct 29.6 L 28.8 L (35.0-46.0) % Plt Count 404 339 (150-450) th/mm3 Neut # (Auto) 11.6 H 9.2 H (1.8-7.7) th/mm3 Lymph # (Auto) 1.1 1.2 (1.0-4.8) th/mm3 Patrick # (Auto) 0.6 0.8 (0.0-0.9) th/mm3 Eos # (Auto) 0.0 0.1 (0.0-0.4) th/mm3 Baso # (Auto) 0.2 0.0 (0.0-0.2) th/mm3 Comprehensive Metabolic Panel 03/27/18 03/28/18 Range/Units 18:18 05:05 Sodium 137 142 (136-145) meq/L Potassium 4.6 3.7 D (3.5-5.1) meq/L Chloride 105 108 H (98-107) meq/L Carbon Dioxide 23.6 22.2 (21.0-32.0) meq/L BUN 26 H 19 H (7-18) mg/dL Creatinine 1.10 H 0.91 (0.50-1.00) mg/dL Calcium 8.2 L 8.2 L (8.5-10.1) mg/dL AST 31 19 (15-37) U/L ALT 23 17 (10-53) U/L Alkaline Phosphatase 65 61 (45-117) U/L Total Protein 7.2 6.6 D (6.4-8.2) g/dL Albumin 2.8 L 2.7 L (3.4-5.0) g/dL Intake and Output 03/28/18 03/28/18 03/28/18 06:59 14:59 22:59 Intake Total 50 / 50 Balance 50 / 50 Intake: IV 50 / 50 Zosyn 3.375 GM Premix 50 ML @ 50 / 50 100 mls/hr IV.SIG Q6H [facility] Rx#: [id number] Other: # Voids 3 Weight 106 lb 14.787 oz Assessment and Plan - Assessment (1) Weakness Code(s): R53.1 - Weakness Status: Acute (2) Sepsis Code(s): A41.9 - Sepsis, unspecified organism Status: Acute (3) Hypertension Code(s): I10 - Essential (primary) hypertension Status: Chronic - Attending Attestation Patient seen and examined. I reviewed and agree with the evaluation and plan as presented. Continue monitoring on telemetry. No clear evidence of ACS at this time. Evaluation for sepsis in progress. Increase activity. Will follow for cardiology. D/w pt and family. <Idalia Dickson - Last Filed: 03/28/18 15:31> (2) Sepsis Qualifiers: Sepsis type: sepsis due to unspecified organism Qualified Code(s): A41.9 - Sepsis, unspecified organism <Amy Salazar - Last Filed: 03/28/18 16:02> (2) Sepsis Qualifiers: Sepsis type: sepsis due to unspecified organism Qualified Code(s): A41.9 - Sepsis, unspecified organism
[2018-03-28] MEDS: Metoprolol Tartrate 100 MG Tablet PO SCH (18:52)
--- NOTE | 2018-03-28 20:27 | CT ---
EXAM DATE: 03/28/2018 8:13 PM EDT AGE/SEX: 82 years / Female INDICATIONS: Bilateral lower extremity weakness. CLINICAL DATA: This is the patient's initial encounter. Patient reports that signs and symptoms have been present for 1 day and indicates a pain score of 0/10. MEDICAL/SURGICAL HISTORY: Hypertension. None. RADIATION DOSE: 18.93 CTDI (mGy) COMPARISON: [facility], CT ABDOMEN & PELVIS W/O CONTRAST, 11/27/2017. . TECHNIQUE: Contiguous axial images were acquired with a multirow detector CT scanner without contras t. Multiplanar reconstructions in the sagittal and coronal plane were also performed. Using automate d exposure control and adjustment of the mA and/or kV according to patient size, radiation dose was k ept as low as reasonably achievable to obtain optimal diagnostic quality images. DICOM format image data is available electronically for review and comparison. FINDINGS: There is transitional lumbosacral anatomy. Numbering utilized as labeled on the images. Grade 1 degen erative-appearing anterolisthesis seen at L3/L4. No fracture or acute appearing malalignment. Vertebr al bodies have normal height. T12-L1: Disc height within normal limits. Mild vacuum phenomena. No foraminal or spinal stenosis. L1-L2: Disc height within normal limits. Mild vacuum phenomena. No foraminal or spinal stenosis. L2-L3: The disc has mild loss of height. There is mild vacuum phenomena. There is diffuse bulging of the annulus and moderate bilateral facet osteoarthritis. There is associated mild spinal stenosis an d dlgz-dw-akeergoa right, mild left foraminal stenosis. L3-L4: The disc has mild to moderate loss of height and vacuum phenomena. There is grade 1 degenerat michael anterolisthesis and a small to moderate, broad/diffuse posterior disc protrusion. Moderate to sev ere bilateral facet osteoarthritis present with thickening of the ligamentum flavum. There is associa elzbieta severe spinal stenosis and moderate to severe bilateral foraminal stenosis. L4-L5: The disc has mild loss of height. There is a small, broad/diffuse posterior disc protrusion a nd moderate bilateral facet osteoarthritis with thickening of the ligamentum flavum. There is associa elzbieta moderate severity spinal stenosis and ffni-gf-eoloexph right, mild left foraminal stenosis. L5-S1: Within normal limits. Incidentally seen right greater the left sacroiliac joint osteoarthritis. CONCLUSION: 1. Transitional lumbosacral anatomy. 2. Multilevel lumbar spine degenerative changes as described. 3. Degenerative anterolisthesis and severe spinal stenosis and moderate to severe bilateral foramina l stenosis at L3/L4. 4. Moderate spinal stenosis and qfyj-se-pythkvur right, mild left foraminal stenosis at L4/L5. 5. Mild to moderate right and mild left foraminal stenosis at L2/L3. 6. No fracture or acute appearing malalignment. Electronically signed by: Britton Goodwin MD 03/28/2018 8:25 PM EDT
--- NOTE | 2018-03-28 22:30 | ECG ---
Date Performed: 03/27/2018 Time Performed: 19:20:16 PTAGE: 82 years EKG: SINUS TACHYCARDIA ABNORMAL RHYTHM ECG PREVIOUS TRACING : 03/27/2018 17.50 DOCTOR: Dangelo Reno Interpretating Date/Time 03/28/2018 22:27:22
--- NOTE | 2018-03-28 22:34 | ECG ---
Date Performed: 03/27/2018 Time Performed: 17:50:46 PTAGE: 82 years EKG: SINUS TACHYCARDIA ABNORMAL RHYTHM ECG PREVIOUS TRACING : 03/27/2018 17.44 Since the previous tracing, no significant change noted DOCTOR: Dangelo Reno Interpretating Date/Time 03/28/2018 22:30:02
[2018-03-29] MEDS: Chlorhexidine Gluconate 2% 1 Pack (2 Cloths) TOPICAL SCH (04:18)
[2018-03-29] MEDS: Piperacil/Tazo 3.375 GM Premix 50 ML IV.SIG SCH ×2 (04:59→11:14)
[2018-03-29] MEDS: Sod Chloride 0.9% Inj 1,000 ML IV.CONT SCH (07:07)
[2018-03-29] MEDS: Metoprolol Tartrate 100 MG Tablet PO SCH ×2 (08:33→22:05)
[2018-03-29] MEDS: Heparin - SQ 10,000 UNITS/ML Vial SQ SCH ×2 (08:33→15:46)
--- NOTE | 2018-03-29 11:24 | P.PNIM ---
Subjective Interval history: Follow-up for bilateral lower extremity weakness Lower extremity weakness better, no nausea, vomiting, denies any chest pain or shortness of breath. No fever or chills, no dysuria. No cough. Physical Exam Vital signs: Vital Signs 03/28/18 12:00 03/28/18 16:00 03/28/18 18:17 Temperature 98.3 F 98.3 F 98.5 F Pulse Rate 93 H 98 H 105 H Respiratory Rate 27 H 18 18 Blood Pressure 155/70 H 155/69 H 198/86 H Pulse Oximetry 99 98 100 03/28/18 20:00 03/29/18 00:00 03/29/18 04:00 Temperature 98.2 F 98.7 F 97.5 F L Pulse Rate 78 86 91 H Respiratory Rate 18 18 18 Blood Pressure 185/74 H 160/74 H 144/89 H Pulse Oximetry 97 97 98 03/29/18 08:00 Temperature 98.2 F Pulse Rate 80 Respiratory Rate 18 Blood Pressure 178/81 H Pulse Oximetry 100 Intake & Output 03/28/18 03/29/18 03/29/18 18:59 06:59 18:59 Intake Total 1150 / 1150 290 / 290 50 / 50 Balance 1150 / 1150 290 / 290 50 / 50 Weight 48.5 kg 48.9 kg Intake: IV 1150 / 1150 50 / 50 50 / 50 NS Inj 1,000 ML @ 70 mls/hr IV. 1000 / 1000 CONT .[id number] [facility] Rx#: [id number] Zosyn 3.375 GM Premix 50 ML @ 150 / 150 50 / 50 50 / 50 100 mls/hr IV.SIG Q6H [facility] Rx#: [id number] Oral 240 / 240 Other: # Voids 3 3 Date of Last Bowel Movement 03/28/18 03/29/18 03/28/18 # Bowel Movements 1 1 Weight On Admission 48.5 kg Narrative: GENERAL: AAOx3, no acute distress, adequate nutrition CARDIOVASCULAR: Regular rate and rhythm. No murmur, no gallops, no rubs. RESPIRATORY: Clear and equal to auscultation bilaterally. No crackles, no wheezes. No accessory muscle use. GASTROINTESTINAL: Abdomen soft, non-tender, nondistended MUSCULOSKELETAL: Extremities without clubbing or cyanosis. No edema. NEUROLOGICAL: Awake and alert. No obvious cranial nerve deficits. Normal speech. Bilateral lower extremities show 4 out of 5 strength, sensation is intact, strength is equal bilaterally.. Extremities are normal in strength and coordination. Results - Labs CBC & Chem 7: 03/28/18 05:05 03/28/18 05:05 Microbiology 03/27/18 19:20 Blood - Peripheral Aerobic Blood Culture - Preliminary No growth in 2 days 03/27/18 19:20 Blood - Peripheral Anaerobic Blood Culture - Preliminary No growth in 2 days 03/27/18 19:10 Blood - Peripheral Aerobic Blood Culture - Preliminary No growth in 2 days 03/27/18 19:10 Blood - Peripheral Anaerobic Blood Culture - Preliminary No growth in 2 days - Imaging Impressions Lumbar Spine CT 03/28/18 00:00 CONCLUSION: 1. Transitional lumbosacral anatomy. 2. Multilevel lumbar spine degenerative changes as described. 3. Degenerative anterolisthesis and severe spinal stenosis and moderate to severe bilateral foraminal stenosis at L3/L4. 4. Moderate spinal stenosis and epkw-tc-vetemfva right, mild left foraminal stenosis at L4/L5. 5. Mild to moderate right and mild left foraminal stenosis at L2/L3. 6. No fracture or acute appearing malalignment. Assessment and Plan - Plan This is an 82-year-old female with history of hypertension admitted for bilateral lower extremity weakness Bilateral lower extremity weakness Sudden onset, occurred one day prior to admission, patient denies a history of spinal stenosis, she denies any recent falls or injuries -Head CT negative, CTA of the chest also done, negative. CT scan of the lumbar spine show degenerative changes including anterolisthesis and severe spinal stenosis and moderate severe bilateral foraminal stenosis at L3-L4, moderate spinal stenosis L4-L5 and mild to moderate foraminal stenosis on the left L2- L3. No fracture. No cord compression. -Consult neurosurgery, physical therapy recommends rehab. Sepsis risk Patient has been afebrile, lactic acid was within normal limits, vital signs are within normal limits She has unexplained leukocytosis, expand workup in the ER showed only this -Urinalysis negative blood culture negative, afebrile, leukocytosis 11.3, doubt infection, stop antibiotics, monitor for 24 hours of antibiotics. Recheck CBC tomorrow. h/o hypertension Continue metoprolol per home dose, start Vasotec as needed. h/o glaucoma Continue home meds DVT Prophylaxis Heparin
--- NOTE | 2018-03-29 12:32 | P.PNCA ---
<Idalia Dickson N - Last Filed: 03/29/18 12:23> Subjective Interval history: Patient denies any chest pain, pressure, palpitations, dizziness or shortness of breath. Patient still complaining of mild weakness in the lower extremities which has slightly improved. Physical Exam Vital signs: Vital Signs 03/28/18 16:00 03/28/18 18:17 03/28/18 20:00 Temperature 98.3 F 98.5 F 98.2 F Pulse Rate 98 H 105 H 78 Respiratory Rate 18 Blood Pressure 155/69 H 198/86 H 185/74 H Pulse Oximetry 98 100 97 03/29/18 00:00 03/29/18 04:00 03/29/18 08:00 Temperature 98.7 F 97.5 F L 98.2 F Pulse Rate 86 91 H 80 Respiratory Rate 18 Blood Pressure 160/74 H 144/89 H 178/81 H Pulse Oximetry 97 98 100 Intake & Output 03/28/18 03/29/18 03/29/18 18:59 06:59 18:59 Intake Total 1150 / 1150 290 / 290 100 / 100 Balance 1150 / 1150 290 / 290 100 / 100 Weight 48.5 kg 48.9 kg Intake: IV 1150 / 1150 50 / 50 100 / 100 NS Inj 1,000 ML @ 70 mls/hr IV. 1000 / 1000 CONT .[id number] [facility]AVON Rx#: [id number] Zosyn 3.375 GM Premix 50 ML @ 150 / 150 50 / 50 100 / 100 100 mls/hr IV.SIG Q6H TAVON Rx#: [id number] Oral 240 / 240 Other: # Voids 3 3 Date of Last Bowel Movement 03/28/18 03/29/18 03/28/18 # Bowel Movements 1 1 Weight On Admission 48.5 kg Narrative: GENERAL: This is a well-nourished, well-developed patient, in no apparent distress. Patient speaks in clear complete sentences. Patient is pleasant. HEENT: Head is atraumatic and normocephalic. Neck is supple without lymphadenopathy and trachea is midline. No JVD or carotid bruits. CARDIOVASCULAR: Regular rate and rhythm without murmurs, gallops, or rubs. RESPIRATORY: Clear to auscultation. Breath sounds equal bilaterally. No wheezes , rales, or rhonchi. Chest wall is nontender. No use of accessory muscles. GASTROINTESTINAL: Abdomen is nontender, nondistended. Abdomen soft. No obvious pulsatile mass or bruit. No CVA tenderness. Strong femoral pulses bilaterally. Normal bowel sounds in all quadrants. MUSCULOSKELETAL: Patient is moving upper and lower extremities freely. Weakness in the lower extremities bilaterally. No calf tenderness or edema, no Homans sign. Strong pulses in upper and lower extremities. NEUROLOGICAL: Patient is alert and oriented. Cranial nerves 2-12 are grossly intact. No focal deficits and speech is clear. SKIN: No rash and turgor is normal. Assessment and Plan - Assessment (1) Weakness Code(s): R53.1 - Weakness Status: Acute (2) Sepsis Code(s): A41.9 - Sepsis, unspecified organism Status: Acute (3) Hypertension Code(s): I10 - Essential (primary) hypertension Status: Chronic - Plan Patient has no chest pain, pressure or discomfort. Continue to monitor patient on telemetry. Patient currently being evaluated for possible sepsis. Patient still having weakness in the lower extremities, neurosurgery has been consulted. Will continue to follow patient during hospitalization. Discussed treatment plan with son and patient. The patient was seen and evaluated by Dr. Salazar who participated in care, management and decision-making. <Amy Salazar - Last Filed: 03/29/18 14:42> Physical Exam Vital signs: Vital Signs 03/28/18 16:00 03/28/18 18:17 03/28/18 20:00 Temperature 98.3 F 98.5 F 98.2 F Pulse Rate 98 H 105 H 78 Respiratory Rate 18 18 18 Blood Pressure 155/69 H 198/86 H 185/74 H Pulse Oximetry 98 100 97 03/29/18 00:00 03/29/18 04:00 03/29/18 08:00 Temperature 98.7 F 97.5 F L 98.2 F Pulse Rate 86 91 H 80 Respiratory Rate 18 18 18 Blood Pressure 160/74 H 144/89 H 178/81 H Pulse Oximetry 97 98 100 03/29/18 12:00 Temperature 97.6 F Pulse Rate 77 Respiratory Rate 18 Blood Pressure 191/88 H Pulse Oximetry 100 Intake & Output 03/28/18 03/29/18 03/29/18 18:59 06:59 18:59 Intake Total 1150 / 1150 290 / 290 100 / 100 Balance 1150 / 1150 290 / 290 100 / 100 Weight 106 lb 14.787 oz 107 lb 12.897 oz Intake: IV 1150 / 1150 50 / 50 100 / 100 NS Inj 1,000 ML @ 70 mls/hr IV. 1000 / 1000 CONT .[id number] [facility]ON Rx#: [id number] Zosyn 3.375 GM Premix 50 ML @ 150 / 150 50 / 50 100 / 100 100 mls/hr IV.SIG Q6H [facility]ON Rx#: [id number] Oral 240 / 240 Other: # Voids 3 3 Date of Last Bowel Movement 03/28/18 03/29/18 03/28/18 # Bowel Movements 1 1 Weight On Admission 106 lb 14.787 oz Assessment and Plan - Assessment (1) Weakness Code(s): R53.1 - Weakness Status: Acute (2) Sepsis Code(s): A41.9 - Sepsis, unspecified organism Status: Acute (3) Hypertension Code(s): I10 - Essential (primary) hypertension Status: Chronic - Attending Attestation Patient seen and examined. I reviewed and agree with the evaluation and plan as presented. No new cardiac issues. Continue current program. Increase activity as tolerated. <Idalia Dickson - Last Filed: 03/29/18 12:23> (2) Sepsis Qualifiers: Sepsis type: sepsis due to unspecified organism Qualified Code(s): A41.9 - Sepsis, unspecified organism <Amy Salazar - Last Filed: 03/29/18 14:42> (2) Sepsis Qualifiers: Sepsis type: sepsis due to unspecified organism Qualified Code(s): A41.9 - Sepsis, unspecified organism
--- NOTE | 2018-03-29 16:36 | MR ---
EXAM DATE: 03/29/2018 2:40 PM EDT AGE/SEX: 82 years / Female INDICATIONS: Spinal stenosis. CLINICAL DATA: This is the patient's initial encounter. Patient reports that signs and symptoms have been present for 1 day and indicates a pain score of 7/10. MEDICAL/SURGICAL HISTORY: Hypertension. . Eye removed, Knee sx. COMPARISON: [facility] – [place], CT LUMBAR SPINE W/O CONTRAST, 03/28/2018. . TECHNIQUE: Multiplanar, multisequence MRI of the lumbar spine was performed without contrast. Patie nt was scanned in a sitting position; neutral, flexion, and extension scans were performed in the sa gittal plane. FINDINGS: There is transitional lumbosacral anatomy. Numbering utilized is labeled on the images and same as th e CT. At the level considered L3/L4, a 2 mm of degenerative-appearing anterolisthesis present. Lumbar spine alignment is otherwise normal. Vertebral bodies have normal height. Conus terminus within norm al limits at the level of T12. T12-L1: The thecal sac has a normal diameter. No evidence of disc bulge or protrusion. The neural foramina are patent bilaterally. L1-L2: The disc is desiccated and slightly. No significant loss of height. There is mild bilateral facet osteoarthritis. No foraminal or spinal stenosis. L2-L3: The disc is desiccated. Slight loss of height. There is bulging of the disc annulus and mode rate bilateral facet osteoarthritis. There is mild spinal stenosis and mild bilateral foraminal steno sis. L3-L4: Posterior disc osteophyte complex and severe bilateral facet osteoarthritis with thickening of the ligamentum flavum. By MRI, be associated spinal stenosis is moderate to severe. There is mild to moderate right and moderate left foraminal stenosis. Grade 1 degenerative anterolisthesis. L4-L5: The disc is desiccated and has mild loss of height. There is diffuse bulging of the disc monica ulus and severe bilateral facet osteoarthritis. There is severe short segment spinal stenosis, actual ly worse than that seen at L3/L4. There is mild foraminal stenosis, mostly on the right. L5-S1: Disc height and hydration within normal limits. No foraminal or spinal stenosis. CONCLUSION: 1. Transitional lumbosacral anatomy. 2. The MRI shows a spinal stenosis is actually severe L4/L5 and moderate to severe at L3/L4 which is the opposite of what was suspected on the comparison CT. The MRI shows mild to moderate degrees of f oraminal stenosis at both of these levels, less severe than what was suspected on the CT. Please see above. 3. Grade 1 anterolisthesis at L3/L4 appears degenerative. No fracture or acute appearing malalignmen t. Electronically signed by: Britton Goodwin MD 03/29/2018 4:35 PM EDT
--- NOTE | 2018-03-29 17:27 | P.CONNS ---
History of Present Illness Service: Neurosurgery Consult date: 03/29/18 Requesting Physician: Giovanny Jennings Reason for Consult: Lumbar stenosis Primary Care Provider: PROVIDER NON STAFF Family Provider: Yusef Delcid Chief Complaint: Bilateral lower extremity weakness History of Present Illness: 82-year-old [place] female presented to the emergency room with complaints of generalized weakness involving the upper and lower extremity acute onset 2 days ago. She denies any back pain or radicular symptoms. She relates that her strength is improving and today she was able to get up and go to the bathroom whereas initially when she came in she could not. Denies any incontinence. CT and MRI scan lumbar spine reviewed shows severe L3-4 and L4-5 spinal stenosis along with grade 1 L3-4 degenerative spondylolisthesis. She also had elevated white blood cell count and troponin and is currently undergoing workup by the medical service and cardiology. Neurosurgery consultation is requested for the lumbar spinal stenosis. Review of Systems Constitutional: Reports fatigue, Reports lack of energy, Reports weakness, Denies anorexia, Denies body ache(s), Denies chills, Denies daytime sleepiness, Denies excessive sweating, Denies fever(s), Denies headache(s), Denies increased appetite, Denies malaise, Denies night sweats, Denies weight gain, Denies weight loss, Denies other Eyes: Denies blind spots, Denies blurry vision, Denies bulging eyes, Denies change in vision, Denies double vision, Denies discharge, Denies dry eyes, Denies floaters, Denies irritation, Denies itchy eyes, Denies loss of vision, Denies pain, Denies requires corrective lenses, Denies sensitivity to light, Denies other Ears, Nose, Mouth, and Throat: Denies abnormal hearing, Denies bleeding gums, Denies bad breath, Denies change in voice, Denies dental pain, Denies difficulty swallowing, Denies dizziness, Denies dry mouth, Denies ear discharge , Denies ear pain, Denies facial pain, Denies headache(s), Denies hearing loss, Denies hoarseness, Denies lip swelling, Denies nosebleed, Denies mouth lesions, Denies mouth pain, Denies nasal congestion, Denies nasal discharge, Denies nasal obstruction, Denies nasal trauma, Denies neck lump, Denies neck pain, Denies nose pain, Denies pain with swallowing, Denies poor balance, Denies post nasal drip, Denies ringing in the ears, Denies sinus pain, Denies sinus pressure , Denies sore throat, Denies throat swelling, Denies tongue swelling, Denies other Cardiovascular: Denies chest pain, Denies chest pain at rest, Denies chest pain with activity, Denies excessive sweating, Denies fainting, Denies fast heart rate, Denies foot swelling, Denies generalized swelling, Denies irregular heart rhythm, Denies leg pain with activity, Denies leg sores, Denies leg swelling, Denies lightheadedness, Denies radiating jaw, neck or arm pain, Denies rapid, pounding, or irregular heartbeat, Denies shortness of breath, Denies shortness of breath with activity, Denies shortness of breath when lying down, Denies shortness of breath causing sudden awakening, Denies slow heart rate, Denies other Respiratory: Denies change in phlegm color, Denies chest congestion, Denies cough, Denies coughing up blood, Denies excessive phlegm production, Denies pain on inspiration, Denies pain with cough, Denies shortness of breath, Denies shortness of breath with activity, Denies snoring, Denies stridor, Denies wheezing, Denies other Gastrointestinal: Denies abdominal pain, Denies belching, Denies black, tarry stools, Denies bloating, Denies bright, red blood in stools, Denies change in bowel habits, Denies constant urge to pass stool, Denies change in stools, Denies coffee ground vomit, Denies constipation, Denies cramping, Denies difficulty swallowing, Denies excessive passing of gas, Denies feeling full early, Denies heartburn, Denies incontinent of stools, Denies loose stools, Denies nausea, Denies pain with swallowing, Denies vomiting, Denies vomiting blood, Denies other Genitourinary: Denies abnormal periods, Denies abnormal vaginal bleeding, Denies absent period, Denies bleeding between periods, Denies blood in urine, Denies difficulty starting urination, Denies difficulty urinating, Denies dribbling after urination, Denies frequent nighttime urination, Denies genital itching, Denies genital lesions, Denies heavy periods, Denies hot flashes, Denies light periods, Denies nipple discharge, Denies painful intercourse, Denies painful periods, Denies painful urination, Denies pelvic pain, Denies prolapse symptoms, Denies sexual problems, Denies side pain, Denies urinary incontinence, Denies urinary urgency, Denies vaginal discharge, Denies vaginal dryness, Denies vaginal odor, Denies vaginal itching, Denies other Musculoskeletal: Reports abnormal walking, Reports muscle weakness, Denies back pain, Denies body aches, Denies decreased muscle mass, Denies deformity, Denies joint pain, Denies joint swelling, Denies limited joint movement, Denies loss of height, Denies muscle cramps, Denies neck pain, Denies numbness, Denies radiating pain into limb, Denies stiffness, Denies tingling, Denies other Skin/Breast: Denies acne, Denies bleeding lesions, Denies boil, Denies breast swelling, Denies breast skin changes, Denies breast pain, Denies breast lump, Denies change in breast shape, Denies change in hair, Denies change in skin color, Denies changing lesions, Denies dry skin, Denies excessive hair growth, Denies hair loss, Denies itching, Denies lesions, Denies nail changes, Denies new lesions, Denies nipple discharge, Denies non-healing lesions, Denies redness , Denies sensitivity to light, Denies rash, Denies skin pain, Denies skin ulcer , Denies sores, Denies stretch kirby, Denies unusual bruising, Denies wounds, Denies yellowing of the skin, Denies other Neurologic: Denies abnormal hearing, Denies abnormal movements, Denies abnormal speech, Denies abnormal walking, Denies behavioral changes, Denies burning sensations, Denies confusion, Denies dizziness, Denies fainting, Denies frequent falls, Denies headache(s), Denies lack of coordination, Denies localized weakness, Denies loss of vision, Denies memory loss, Denies numbness, Denies other visual disturbances, Denies radiating pain, Denies restless legs, Denies convulsions, Denies seizure-like activity, Denies sensory deficit, Denies tingling, Denies tingling/numbness/burning sensations, Denies tremor(s), Denies unsteadiness, Denies weakness, Denies other Psychiatric: Denies abnormal sleep pattern, Denies anxiety, Denies behavioral changes, Denies change in appetite, Denies change in sex drive, Denies confusion , Denies depression, Denies difficulty concentrating, Denies hearing things others do not hear, Denies hopelessness, Denies irritability, Denies lack of enjoyment, Denies memory loss, Denies mood swings, Denies panic attacks, Denies paranoia, Denies seeing things others do not see, Denies sensing things others do not sense, Denies tactile hallucinations, Denies thoughts of hurting/killing others, Denies thoughts of hurting/killing yourself, Denies other Endocrine: Denies cold intolerance, Denies excessive sweating, Denies flushing, Denies heat intolerance, Denies increased hunger, Denies increased thirst, Denies increased urination, Denies rapid, pounding, or irregular heartbeat, Denies other Hematologic/Lymphatic: Denies easy bleeding, Denies easy bruising, Denies enlarged lymph nodes, Denies other Allergic/Immunologic: Denies GI upset with certain foods, Denies hives, Denies itchy eyes, Denies lip swelling, Denies seasonal runny nose, Denies throat swelling, Denies tongue swelling, Denies wheezing, Denies other PMFSH - History History Provided By: Family Member - Medical History Medical History: Medical History (Last Reviewed 03/29/18 @ 13:52 by Emanuel Swain) Glaucoma Hypertension Sleep disorder - Surgical History Surgical History: Surgical History (Last Reviewed 03/29/18 @ 13:52 by Emanuel Swain) History of eye removal History of knee replacement - Tobacco History Second Hand Smoke Exposure: No Tobacco Use In Past 30 Days: No Smoking Status: Never smoker - Alcohol History How Often Do You Have a Drink Containing Alcohol: Never - Substance Use History Substance History: No History of Abuse - Travel History Recent Travel in the [place] Within the Last 8 Weeks: No Recent Travel Out of the Country Within the Last 8 Weeks: No - Immunization History Tetanus Immunization: Unsure Hx Influenza Vaccine This Season: No Medications and Allergies Active Medications: Active Medications Acetaminophen (Tylenol) 650 mg PO Q4H PRN PRN Reason: Temp > 100.4/pain Last Admin: 03/28/18 23:06 Dose: 650 mg Al Hydroxide/Mg Hydroxide (Milk Of Magnesia Liq) 30 ml PO Q12H PRN PRN Reason: Mild Constipation Bisacodyl (Dulcolax Supp) 10 mg RECTAL DAILY PRN PRN Reason: SEVERE CONSITIPATION Chlorhexidine Gluconate (Chlorhexidine 2% Cloth) 3 pack TOPICAL DAILY@0400 [facility] Stop: 04/02/18 03:59 Last Admin: 03/29/18 04:18 Dose: Not Given Chlorhexidine Gluconate (Chlorhexidine 2% Cloth) 3 pack TOPICAL DAILY@0400 PRN PRN Reason: Extra cloth needed Stop: 04/02/18 03:59 Clonidine HCl (Catapres) 0.1 mg PO Q6H PRN PRN Reason: SBP>180, DBP>95 Last Admin: 03/29/18 12:49 Dose: 0.1 mg Enalaprilat (Vasotec Inj) 1.25 mg IV.PUSH Q6H PRN PRN Reason: SBP>160, DBP>90 Heparin Sodium (Porcine) (Heparin Inj) 5,000 units SQ Q8H [facility] Last Admin: 03/29/18 15:46 Dose: 5,000 units Lactulose (Lactulose Liq) 30 ml PO DAILY PRN PRN Reason: SEVERE CONSITIPATION Metoprolol Tartrate (Lopressor) 100 mg PO BID [facility] Last Admin: 03/29/18 08:33 Dose: 100 mg Ondansetron HCl (Zofran Inj) 4 mg IV.PUSH Q6H PRN PRN Reason: NAUSEA OR VOMITING Sennosides (Senokot) 17.2 mg PO Q12H PRN PRN Reason: Moderate Constipation Sodium Chloride (Ns Flush) 2 ml IV.FLUSH PRN PRN PRN Reason: FLUSH AFTER USING IV ACCESS Allergies Allergy/AdvReac Type Severity Reaction Status Date / Time sulfamethoxazole Allergy Intermediate Generalized Verified 03/27/18 20:22 Rash trimethoprim Allergy Intermediate Diarrhea Verified 03/27/18 20:22 Home Medications Medication Instructions Recorded Confirmed Type alprazolam 0.25 mg PO HS 03/27/18 03/27/18 History diclofenac sodium 75 mg PO BID PRN 03/27/18 03/27/18 History metoprolol tartrate 100 mg PO BID 03/27/18 03/27/18 History Exam Vital signs: Vital Signs 03/28/18 18:17 03/28/18 20:00 03/29/18 00:00 Temperature 98.5 F 98.2 F 98.7 F Pulse Rate 105 H 78 86 Respiratory Rate 18 Blood Pressure 198/86 H 185/74 H 160/74 H Pulse Oximetry 100 97 97 03/29/18 04:00 03/29/18 08:00 03/29/18 12:00 Temperature 97.5 F L 98.2 F 97.6 F Pulse Rate 91 H 80 77 Respiratory Rate 18 Blood Pressure 144/89 H 178/81 H 191/88 H Pulse Oximetry 98 100 100 Intake & Output 03/28/18 03/29/18 03/29/18 18:59 06:59 18:59 Intake Total 1150 / 1150 290 / 290 100 / 100 Balance 1150 / 1150 290 / 290 100 / 100 Weight 48.5 kg 48.9 kg Intake: IV 1150 / 1150 50 / 50 100 / 100 NS Inj 1,000 ML @ 70 mls/hr IV. 1000 / 1000 CONT .[id number] [facility] Rx#: [id number] Zosyn 3.375 GM Premix 50 ML @ 150 / 150 50 / 50 100 / 100 100 mls/hr IV.SIG Q6H [facility] Rx#: [id number] Oral 240 / 240 Other: # Voids 3 3 4 Date of Last Bowel Movement 03/28/18 03/29/18 03/28/18 # Bowel Movements 1 1 Weight On Admission 48.5 kg - Constitutional no acute distress - Routine HEENT Exam Head: Present: normocephalic, atraumatic Eye: Present: EOMI, PERRL ENT: Present: mucous membranes moist, oropharynx clear, nares patent, external ear normal - Routine Neck Exam Present: supple, full ROM - Routine Respiratory Exam Present: CTA bilaterally - Routine Cardiovascular Exam Present: RRR, S1, S2 - Routine Abdominal Exam Present: soft, normoactive bowel sounds - Routine Extremities Exam Present: full ROM - Routine Skin Exam Present: intact - Routine Neurological Exam Present: oriented X3, CN II-XII intact, plantar reflex, moving all extremities ( Strength overall with some giveaway weakness of lower extremities but able to stand and walk short distance), normal tone, normal speech - Routine Psychiatric Exam Present: normal affect, normal thought process, cooperative, good insight, good judgment Results - Laboratory Findings CBC and BMP: 03/28/18 05:05 03/28/18 05:05 Abnormal lab findings: Abnormal Labs 03/27/18 03/27/18 03/27/18 18:18 18:18 18:30 WBC 13.5 H RBC 3.57 L Hgb 10.1 L Hct 29.6 L MCHC Neut % (Auto) 85.8 H Lymph % (Auto) 8.2 L Neut # (Auto) 11.6 H D-Dimer Quant (PE/DVT) Chloride BUN 26 H Creatinine 1.10 H Estimated GFR 48 L Random Glucose 123 H Calcium 8.2 L Ammonia Troponin I 0.06 H Albumin 2.8 L Ur Squamous Epith Cells 6-10 H Urine Bacteria Occasional H 03/27/18 03/27/18 03/27/18 18:45 19:20 20:50 WBC RBC Hgb Hct MCHC Neut % (Auto) Lymph % (Auto) Neut # (Auto) D-Dimer Quant (PE/DVT) 1.14 H Chloride BUN Creatinine Estimated GFR Random Glucose Calcium Ammonia Less than 10 L Troponin I 0.11 H Albumin Ur Squamous Epith Cells Urine Bacteria 03/28/18 03/28/18 05:05 05:05 WBC 11.3 H RBC 3.33 L Hgb 9.2 L Hct 28.8 L MCHC 31.8 L Neut % (Auto) 81.3 H Lymph % (Auto) Neut # (Auto) 9.2 H D-Dimer Quant (PE/DVT) Chloride 108 H BUN 19 H Creatinine Estimated GFR 59 L Random Glucose Calcium 8.2 L Ammonia Troponin I Albumin 2.7 L Ur Squamous Epith Cells Urine Bacteria - Diagnostic Findings Additional findings: Impressions Lumbar Spine CT 03/28/18 00:00 CONCLUSION: 1. Transitional lumbosacral anatomy. 2. Multilevel lumbar spine degenerative changes as described. 3. Degenerative anterolisthesis and severe spinal stenosis and moderate to severe bilateral foraminal stenosis at L3/L4. 4. Moderate spinal stenosis and [id number] right, mild left foraminal stenosis at L4/L5. 5. Mild to moderate right and mild left foraminal stenosis at L2/L3. 6. No fracture or acute appearing malalignment. Lumbar Spine MRI 03/29/18 00:00 CONCLUSION: 1. Transitional lumbosacral anatomy. 2. The MRI shows a spinal stenosis is actually severe L4/L5 and moderate to severe at L3/L4 which is the opposite of what was suspected on the comparison CT. The MRI shows mild to moderate degrees of foraminal stenosis at both of these levels, less severe than what was suspected on the CT. Please see above. 3. Grade 1 anterolisthesis at L3/L4 appears degenerative. No fracture or acute appearing malalignment. Assessment and Plan - Assessment (1) Lumbar stenosis with neurogenic claudication Code(s): M48.062 - Spinal stenosis, lumbar region with neurogenic claudication Status: Acute - Plan 82-year-old female with an acute onset of lower extremity weakness which is improving without any incontinence or numbness. Severe L3-4 and L4-5 spinal stenosis along with a grade 1 degenerative spondylolisthesis at L3-4 level which is chronic. She is also undergoing workup for elevated white blood cell count and cardiology evaluation for elevated troponin on presentation. Treatment options with the lumbar stenosis was discussed and patient and her daughter are adamant that they did not want any surgical intervention. Accordingly recommended physical therapy/rehabilitation. We will see her on an as-needed basis.
[2018-03-30] MEDS: Heparin - SQ 10,000 UNITS/ML Vial SQ SCH ×2 (00:03→08:43)
[2018-03-30 08:15] LABS: Hematocrit 29.8 % (35.0-46.0); Hemoglobin 9.6 gm/dL (11.6-15.3); Mean Corpuscular HGB Conc 32.1 % (32.0-36.0); Mean Corpuscular Hemoglobin 27.5 pg (27.0-34.0); Mean Corpuscular Volume 85.7 fL (80.0-100.0); Mean Platelet Volume 7.6 fL (7.0-11.0); Platelet Count 395 th/mm3 (150-450); Red Blood Count 3.48 mil/mm3 (4.00-5.30); Red Cell Distribution Width 14.3 % (11.6-17.2); White Blood Count 7.5 th/mm3 (4.0-11.0)
--- NOTE | 2018-03-30 08:37 | P.DCO ---
- Physical Therapy Order: Evaluate and treat - Certification I have seen patient Godwin Townsend on 03/30/18. My clinical findings support the need for the requested home health care services because: Limited mobility due to disease progression, Deconditioned with increased weakness I certify that my clinical findings support that this patient is homebound because: Unsteady gait/balance, Unsafe to leave home unassisted
[2018-03-30] MEDS: Metoprolol Tartrate 100 MG Tablet PO SCH (08:44)
[2018-03-30] MEDS: Chlorhexidine Gluconate 2% 1 Pack (2 Cloths) TOPICAL SCH (08:44)
--- NOTE | 2018-03-30 11:46 | P.DS ---
Date of admission: 03/27/18 22:30 Primary care physician: PROVIDER NON STAFF Anticipated date of discharge: 03/30/18 Brief History from admission: 82-year-old female with a history of glaucoma and hypertension presents to the ER with sudden onset of bilateral lower extremity weakness. She states she felt fine otherwise. Upon awakening early on the morning of 03/27/2018 she noted that she was unable to walk. Both legs were very painful, daughter reports that massage help to alleviate some of this pain. Expanded ER workup included d -dimer which was elevated, pulmonary angiogram was negative for pulmonary embolism. CT of the brain showed no evidence of stroke. Blood work only showed elevated white cells without evidence of true sepsis, but for lack of a better diagnosis she was started on empiric coverage for sepsis. Her only complaint remains weakness and pain in her legs, she has had no fevers, no nausea vomiting, no cough and states that she feels perfectly normal from the waist up. DS: Diagnosis - Discharge Diagnosis (1) Weakness Status: Acute (2) Lumbar stenosis with neurogenic claudication Status: Acute DS: Summary Hospital Course: This is an 82-year-old female with history of hypertension admitted for bilateral lower extremity weakness which was sudden onset. Head CT negative, CTA of the chest also done, negative. CT scan of the lumbar spine show degenerative changes including anterolisthesis and severe spinal stenosis and moderate severe bilateral foraminal stenosis at L3-L4, moderate spinal stenosis L4-L5 and mild to moderate foraminal stenosis on the left L2-L3. No fracture. No cord compression. Neurosurgery was consulted, patient refused surgery, patient will need rehab versus home health care with physical therapy. There was a concern for sepsis because of unexplained leukocytosis. Workup was negative. Urinalysis negative blood culture negative, afebrile, leukocytosis 11.3, doubt infection, antibiotics were stopped, patient remained afebrile for 24 hours, repeat CBC showed normalization of WBC she will continue metoprolol for hypertension. She will be discharged to rehab versus [facility] depending on what the family wants. - Time Spent with Patient Total time spent providing and/or coordinating discharge services: Greater than 30 minutes Exam Vital signs: Vital Signs 03/29/18 12:00 03/29/18 16:00 03/29/18 20:00 Temperature 97.6 F 97.6 F 98.1 F Pulse Rate 77 85 79 Respiratory Rate 18 18 18 Blood Pressure 191/88 H 195/77 H 191/86 H Pulse Oximetry 100 96 100 03/30/18 00:00 03/30/18 04:00 03/30/18 07:38 Temperature 98.1 F 98.2 F 98.1 F Pulse Rate 81 69 82 Respiratory Rate 18 12 Blood Pressure 173/77 H 172/73 H 167/74 H Pulse Oximetry 99 99 98 Intake & Output 03/29/18 03/30/18 03/30/18 18:59 06:59 18:59 Intake Total 100 / 100 Balance 100 / 100 Weight 50.9 kg Intake: IV 100 / 100 Zosyn 3.375 GM Premix 50 ML @ 100 / 100 100 mls/hr IV.SIG Q6H TAVON Rx#: [id number] Other: # Voids 4 2 Date of Last Bowel Movement 03/28/18 03/29/18 # Bowel Movements 1 Narrative: S> No complaints, lower extremity weakness a lot better, wants to go home O> GENERAL: AAOx3, no acute distress, adequate nutrition CARDIOVASCULAR: Regular rate and rhythm. No murmur, no gallops, no rubs. RESPIRATORY: Clear and equal to auscultation bilaterally. No crackles, no wheezes. No accessory muscle use. GASTROINTESTINAL: Abdomen soft, non-tender, nondistended MUSCULOSKELETAL: Extremities without clubbing or cyanosis. No edema. NEUROLOGICAL: Awake and alert. No obvious cranial nerve deficits. Normal speech. Bilateral lower extremities show 4 out of 5 strength, sensation is intact, strength is equal bilaterally.. Extremities are normal in strength and coordination. Results Procedures completed during hospitalization: None Labs on day of discharge: Labs from last 24 hours 03/30/18 07:38 WBC 7.5 RBC 3.48 L Hgb 9.6 L Hct 29.8 L MCV 85.7 MCH 27.5 MCHC 32.1 RDW 14.3 Plt Count 395 MPV 7.6 Preliminary micro results at discharge 03/27/18 19:20 Aerobic Blood Culture - Preliminary Blood - Peripheral No growth in 3 days Anaerobic Blood Culture - Preliminary No growth in 3 days 03/27/18 19:10 Aerobic Blood Culture - Preliminary Blood - Peripheral No growth in 3 days Anaerobic Blood Culture - Preliminary No growth in 3 days - Impressions ITS Impressions Chest X-Ray 03/27/18 17:27 CONCLUSION: Mild atelectasis. No perceptible pneumonia. Chest CTA 03/27/18 19:55 CONCLUSION: 1. No pulmonary embolus. 2. Fibroemphysematous changes. 3. Chronic left apex parenchymal scarring and subcentimeter nodules not significantly changed. Head CT 03/27/18 19:55 CONCLUSION: 1. No acute intracranial abnormality. 2. Chronic white matter changes. . Lumbar Spine CT 03/28/18 00:00 CONCLUSION: 1. Transitional lumbosacral anatomy. 2. Multilevel lumbar spine degenerative changes as described. 3. Degenerative anterolisthesis and severe spinal stenosis and moderate to severe bilateral foraminal stenosis at L3/L4. 4. Moderate spinal stenosis and [id number] right, mild left foraminal stenosis at L4/L5. 5. Mild to moderate right and mild left foraminal stenosis at L2/L3. 6. No fracture or acute appearing malalignment. Lumbar Spine MRI 03/29/18 00:00 CONCLUSION: 1. Transitional lumbosacral anatomy. 2. The MRI shows a spinal stenosis is actually severe L4/L5 and moderate to severe at L3/L4 which is the opposite of what was suspected on the comparison CT. The MRI shows mild to moderate degrees of foraminal stenosis at both of these levels, less severe than what was suspected on the CT. Please see above. 3. Grade 1 anterolisthesis at L3/L4 appears degenerative. No fracture or acute appearing malalignment. Discharge Plan - Discharge Disposition Patient Disposition: /Home Health Service - Discharge Condition Condition: Stable - Discharge Order Discharge Orders: Discharge Order (Routine); Ordered 03/30/18 Ordered By: Giovanny Jennings - Discharge Details Anticipated Discharge Date: 03/30/18 Discharge Comment: d/c to SNF/[facility] after seen by ca - Physicians Team Primary Care Provider: NON STAFF,PROVIDER Attending Provider: Giovanny Jennings Other Providers: Amy Salazar MD ; Polo William MD
--- NOTE | 2018-03-30 13:26 | P.PNCA ---
<Idalia Dickson N - Last Filed: 03/30/18 13:55> Subjective Interval history: Patient denies any chest pain, pressure, palpitations, dizziness or shortness of breath. Patient states she is feeling much better and her strength in her lower extremities is improving. Physical Exam Vital signs: Vital Signs 03/29/18 16:00 03/29/18 20:00 03/30/18 00:00 Temperature 97.6 F 98.1 F 98.1 F Pulse Rate 85 79 81 Respiratory Rate 18 18 18 Blood Pressure 195/77 H 191/86 H 173/77 H Pulse Oximetry 96 100 99 03/30/18 04:00 03/30/18 07:38 03/30/18 12:00 Temperature 98.2 F 98.1 F 97.9 F Pulse Rate 69 82 72 Respiratory Rate 12 17 Blood Pressure 172/73 H 167/74 H 196/82 H Pulse Oximetry 99 98 100 Intake & Output 03/29/18 03/30/18 03/30/18 18:59 06:59 18:59 Intake Total 100 / 100 Balance 100 / 100 Weight 50.9 kg Intake: IV 100 / 100 Zosyn 3.375 GM Premix 50 ML @ 100 / 100 100 mls/hr IV.SIG Q6H TAVON Rx#: [id number] Other: # Voids 4 2 Date of Last Bowel Movement 03/28/18 03/29/18 # Bowel Movements 1 Narrative: GENERAL: This is a well-nourished, well-developed patient, in no apparent distress. Patient speaks in clear complete sentences. Patient is pleasant. HEENT: Head is atraumatic and normocephalic. Neck is supple without lymphadenopathy and trachea is midline. No JVD or carotid bruits. CARDIOVASCULAR: Regular rate and rhythm without murmurs, gallops, or rubs. RESPIRATORY: Clear to auscultation. Breath sounds equal bilaterally. No wheezes , rales, or rhonchi. Chest wall is nontender. No use of accessory muscles. GASTROINTESTINAL: Abdomen is nontender, nondistended. Abdomen soft. No obvious pulsatile mass or bruit. No CVA tenderness. Strong femoral pulses bilaterally. Normal bowel sounds in all quadrants. MUSCULOSKELETAL: Patient is moving upper and lower extremities freely. No calf tenderness or edema, no Homans sign. Strong pulses in upper and lower extremities. Lower extremity strength has improved and patient is able to ambulate with assistance. NEUROLOGICAL: Patient is alert and oriented. Cranial nerves 2-12 are grossly intact. No focal deficits and speech is clear. SKIN: No rash and turgor is normal. Assessment and Plan - Assessment (1) Weakness Code(s): R53.1 - Weakness Status: Acute (2) Sepsis Code(s): A41.9 - Sepsis, unspecified organism Status: Acute (3) Hypertension Code(s): I10 - Essential (primary) hypertension Status: Chronic - Plan Patient remains stable on telemetry with no acute arrhythmias noted. Patient remained stable from a cardiac standpoint. Patient's lower extremity strength has improved and patient is able to ambulate with assistance. Will continue to follow patient during hospitalization, will see back in office after discharge. Patient okay to discharge from cardiac standpoint. The patient was seen and evaluated by Dr. Salazar who participated in care, management and decision-making. <Amy Salazar - Last Filed: 03/30/18 14:33> Physical Exam Vital signs: Vital Signs 03/29/18 16:00 03/29/18 20:00 03/30/18 00:00 Temperature 97.6 F 98.1 F 98.1 F Pulse Rate 85 79 81 Respiratory Rate 18 18 18 Blood Pressure 195/77 H 191/86 H 173/77 H Pulse Oximetry 96 100 99 03/30/18 04:00 03/30/18 07:38 03/30/18 12:00 Temperature 98.2 F 98.1 F 97.9 F Pulse Rate 69 82 72 Respiratory Rate 12 17 Blood Pressure 172/73 H 167/74 H 196/82 H Pulse Oximetry 99 98 100 Intake & Output 03/29/18 03/30/18 03/30/18 18:59 06:59 18:59 Intake Total 100 / 100 Balance 100 / 100 Weight 112 lb 3.445 oz Intake: IV 100 / 100 Zosyn 3.375 GM Premix 50 ML @ 100 / 100 100 mls/hr IV.SIG Q6H TAVON Rx#: [id number] Other: # Voids 4 2 Date of Last Bowel Movement 03/28/18 03/29/18 # Bowel Movements 1 Assessment and Plan - Assessment (1) Weakness Code(s): R53.1 - Weakness Status: Acute (2) Sepsis Code(s): A41.9 - Sepsis, unspecified organism Status: Acute (3) Hypertension Code(s): I10 - Essential (primary) hypertension Status: Chronic - Attending Attestation Patient seen and examined. I reviewed and agree with the evaluation and plan as presented. She remains stable from cardiac standpoint. Continue and titrate BP control. DC home as planned. Will schedule f/u in our office after discharge. <Idalia Dickson - Last Filed: 03/30/18 13:55> (2) Sepsis Qualifiers: Sepsis type: sepsis due to unspecified organism Qualified Code(s): A41.9 - Sepsis, unspecified organism <Amy Salazar - Last Filed: 03/30/18 14:33> (2) Sepsis Qualifiers: Sepsis type: sepsis due to unspecified organism Qualified Code(s): A41.9 - Sepsis, unspecified organism
== END 2018-03-30 13:34 | disposition home health service (06) ==
LOC: PHED 16:23 → PHEDA 22:30 → HIMC 03-28 03:50 → N05 03-28 17:24
PROVIDERS: ADMIT Hospitalist; ATTEND Hospitalist